=== PATIENT | male | born 1945 | race Caucasian/White ===

== ENCOUNTER 2016-08-19 10:32 | Day surgery (SDC) | payer MEDICARE ==
[~2016-08-19] VITALS: Ht 167.6 cm; Wt 79.3 kg
[~2016-08-19 10:32] MED LIST: ASPI1TAB69 PO; ATOR1TAB18 PO; METO25TA3 PO; OMEP20TA PO; PRAS10TA PO; RANO500 PO
[2016-08-19] MEDS ORDERED: MAGN1TAB14 PO (11:07)
[2016-08-19] MEDS ORDERED: FISHCAP4 PO (11:07)
[2016-08-19 11:09] VITALS: BP 160/82; PULSE 55; RESP 16; TEMP 98.1; O2SAT 96
[2016-08-19 11:14] LABS: AUTOMATED NEUTROPHIL # 5.2 TH/MM3 (1.8-7.7); BASOPHIL % 0.5 % (0.0-2.0); EOSINOPHIL # 0.2 TH/MM3 (0-0.4); EOSINOPHIL % 2.6 % (0.0-4.0); HEMATOCRIT 39.1 % (39.0-51.0); HEMO FLAGS DIFF FINAL; LYMPH % 21.7 % (9.0-44.0); LYMPHOCYTE # 1.7 TH/MM3 (1.0-4.8); MEAN CELL VOLUME 87.5 FL (80.0-100.0); MEAN CORPUSCULAR HEMOGLOBIN 28.6 PG (27.0-34.0); MEAN CORPUSCULAR HGB CONC 32.7 % (32.0-36.0); MONO % 9.5 % (0.0-8.0); NEUT % 65.7 % (16.0-70.0); PLATELET COUNT 173 TH/MM3 (150-450); RED BLOOD COUNT 4.47 MIL/MM3 (4.50-5.90); RED CELL DISTRIBUTION WIDTH 15.5 % (11.6-17.2); WHITE BLOOD COUNT 7.9 TH/MM3 (4.0-11.0)
[2016-08-19 11:22] LABS: APTT (PATIENT) 27.8 SEC (24.3-30.1); PROTHROMBIN TIME - PATIENT 10.6 SEC (9.8-11.6)
[2016-08-19 11:27] LABS: BICARBONATE 28.6 MEQ/L (21.0-32.0)
[2016-08-19] MEDS ORDERED: SODIUM CHLOR 0.9% 1000 ML INJ 1,000 ML IV SCH (12:00)
[2016-08-19] MEDS ORDERED: HEPARIN-NS/PF INJ 500 ML ONE ×2 (13:29→14:16)
[2016-08-19] MEDS ORDERED: IOHEXOL 350 MG/ML 100 ML BTL (for Cath Lab) OTHER ONE (13:29)
[2016-08-19] MEDS ORDERED: MIDAZOLAM HCL 2 MG/2 ML VIAL ONE ×2 (13:29→14:37)
[2016-08-19] MEDS ORDERED: LABETALOL HCL 100 MG/20 ML VIAL ONE (14:37)
[2016-08-19] MEDS ORDERED: SODIUM CHLOR 0.9% 1000 ML INJ 1,000 ML IV ONE (15:08)
[2016-08-19] MEDS ORDERED: ONDANSETRON HCL 4 MG/2 ML VIAL IV PRN (15:15)
[2016-08-19] MEDS ORDERED: SODIUM CHLOR 0.9% 250 ML INJ 250 ML IV PRN (15:15)
[2016-08-19] MEDS ORDERED: ATROPINE SULFATE 1 MG/ML VIAL IVP PRN (15:15)
--- NOTE | 2016-08-19 15:59 | MA ---
cc: CECIL WOOD M.D. DATE: 08/19/2016 PROCEDURE Left heart catheterization, selective coronary and graft angiography, left ventriculography, intravascular ultrasound imaging of the vein graft to the right coronary artery. PROCEDURE NOTE The patient was brought to the cardiac catheterization laboratory in a fasting state after having signed informed consent. The right groin was prepped and draped as per policy and anesthetized with 1% lidocaine. Arterial access was obtained via the right femoral artery. However, we are unable to advance a guidewire through the iliac system. Arterial access was obtained via the left femoral artery and a 6-Nepali sheath placed. Coronary arteriography was performed using 6-Nepali Jeanette left 3.5 and right progressive catheters. The vein graft to the right coronary was engaged with a multipurpose catheter. All of the other grafts were engaged with the progressive right catheter. Left ventriculography was done using a standard 6-Nepali pigtail. Intravascular ultrasound imaging was done as described below. There were no apparent immediate complications. We attempted to close his left femoral arteriotomy site with Vascade without success. Manual pressure was held to achieve good hemostasis. HEMODYNAMIC DATA Left ventricle 158 with an end-diastolic pressure of 16. Aorta 133/43 with a mean of 81. There was no definite significant transvalvular aortic gradient on pullback of the pigtail catheter. CORONARY ARTERIOGRAPHY The left main appears to be totally occluded at its origin. Several flush shots were taken demonstrating no flow through the left main. The right coronary artery is totally occluded near its origin. GRAFT ANGIOGRAPHY The Y-graft to the left circumflex and LAD appears to be widely patent. The wainwright mid to distal LAD has minimal luminal irregularities. The wainwright mid to distal left circumflex has mild diffuse disease. The ostial to proximal left circumflex has diffuse probably up to 80% disease. The proximal LAD appears to be totally occluded. The vein graft to the right coronary artery is widely patent. There is a stent evident at the ostium and the stent appears to be widely patent. There is a globular density seen just distal to the stent. LEFT VENTRICULOGRAPHY In order to reduce dye load contrast injection of the left ventricle was done using a hand injection. The left ventriculogram is somewhat suboptimal. There is suggestion of global hypokinesis with ejection fraction very roughly estimated at 40%. INTRAVASCULAR ULTRASOUND IMAGING DESCRIPTION Heparin, 70 units per kilogram, was administered intravenously. Because of the globular lesion seen distal to the stent in the vein graft to the right coronary artery it was decided to perform intravascular ultrasound imaging. A multipurpose guiding catheter was used to re-engage this graft. Using a 0.014 Prowater guidewire the region of interest was crossed without difficulty and the tip of the wire positioned distally. Intravascular ultrasound imaging demonstrates slight asymmetry of the ostial stent, but it is otherwise widely patent. The region of interest appears to be due to eccentric mild calcification. No thrombus or significant obstructive disease is seen. CONCLUSIONS 1. 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 2. Widely patent Y-graft to the LAD and left circumflex, widely patent vein graft to the right coronary artery with a patent stent at its ostium. 3. Suboptimal left ventriculogram; there is suggestion of diffuse hypokinesis with ejection fraction very roughly estimated at 40%. 4. Status post intravascular ultrasound imaging of the vein graft to the right coronary artery. MD AL Hein/KENNA /3:06 PM /3:32 PM DAVID
--- NOTE | 2016-08-19 19:16 | EKG ---
Date Performed: 08/19/2016 Time Performed: 11:27:02 PTAGE: 71 years EKG: Sinus rhythm with frequent PVCs. Extensive ST-T changes are nonspecific Abnormal ECG PREVIOUS TRACING : 05/11/1994 10.06 Compared to the previous tracing PVCs and ST-T changes pres ent DOCTOR: Khoa Davison Interpretating Date/Time 08/19/2016 19:15:18
--- NOTE | 2016-08-20 15:34 | CATHPROC ---
[employer] HIS Report Study Information Study Number Admission Scheduled Start Study Start [id number] 08/19/2016 08/19/2016 Aug 19 2016 1:19PM Study Type [place] Service Left Heart Cath Cardiac Catheterization Referring Institution Admit Source Facility Department 1 Other [facility] - [facility] Physician and Clinical Staff Initial Abram Chua Curtain Cleaner Kathy Burnett,MICHELLE Other Per Javier,RT(R) Recorder Bobo Reyez,RT(R) TECH2 Scrub Vera Howard,RT(R) Procedures Performed Procedure Location (Site) Vessel Name Coronary Angiograms LCA Left Coronary Coronary Angiograms RCA Right Coronary Coronary Angiograms SVG-OM CIRC Coronary Angiograms SVG-RCA Right Coronary Coronary Angiograms JANETT Dist JANETT IVUS SVG-RCA Right Coronary L Heart Cath LV Gram-hand inj. LV LV Ventricle Wire insertion Fem Art (left) Femoral Art Wire insertion Fem Art (right) Femoral Art Equipment Time Master Control Supervisor Description Size Mfg Part Number Used/Scraped [id number] 14:44 [employer] WIRE, ASABazinga PROWATER 180CM 180CM Used *[id number] TRANSDUCER, TRUWAVE 13:32 [employer] * [id number] Used W/STOCKCOCK [id number] 14:55 CARDIVA MEDICAL VASCADE, FR6 CLOSURE SYSTEM FR 6\7 Used *[id number] *[id number] [id number] *[id number] 534-618T *[id number] 534-620T *[id number] 534-617T *[id number] *[id number] 534-642T *[id number] 534-650S *[id number] WIRE, HYDROSTEER 150CM [id number] 14:10 DAIG/ST. ASIF MEDICAL 150CM Used ANGLED GLIDE *[id number] 13:32 [employer] PACK, CCL CUSTOM * Used *[id number] 13:32 MEDLINE PACER PEN, SKIN DUAL W/ RULER * [id number] Used [id number] 13:32 [employer]ob[employer] MEDICAL SHEATH, FR6.5 PRELUDE 11CM FR 6.5 038ACT Used *[id number] 13:32 [employer] MEDICAL WIRE, 3MMJ .035 180CM 180CM Used *[id number] 13:32 NAMIC MANIFOLD, 4 PORT * Used *[id number] 13:32 NYCOMED OMNIPAQUE, 350 MG, 150ML 150ML [id number] Used DYEVERT, CONTRAST HVOFF-RRS 13:33 [employer] NG Used MODULATION SYSTEM NG *[id number] 13:32 [facility] BLANKET,WARM AIR CCL * Used *[id number] CATHETER, [place] [id number] 14:33 [employer]OL[employer] Used IMAGING *[id number] CATHETER, EW[employer] [place] [id number] 14:45 [employer]OL[employer] Used IMAGING *[id number] Equipment Model, Serial, Lot Number and Expiration Data Description Model Number Serial Number Lot Number Expiration Date CATHETER, [employer] [place] [id number] 05-26-2018 IMAGING CATHETER, [employer] [place] [id number] 05-26-2018 IMAGING DYEVERT, CONTRAST MODULATION [id number] 05-22-2017 SYSTEM NG WIRE, HYDROSTEER 150CM [id number] 05-27-2019 ANGLED GLIDE History: Current Medications Medication Dosage/Unit Route Frequency Last Date/Time Taken ASA Statins (any) EFFIENT Magnesium History: Allergies Allergy Reaction No Known Allergies Oxycontin History: Risk Factors Family History of Hypertension Dyslipidemia Previous [place] Previous Heart Failure Premature CAD Yes Yes No No No Prior Valve Prior PCI Prior PCIDate Prior CABG Prior CABGDate Surgery No Yes 03/29/2016 Yes 07/27/1997 Cerebrovascular Peripheral Artery Chronic Lung On Dialysis Diabetes Disease Disease Disease No No Yes No No History: Symptoms/Diagnosis Selection Items Chest pain SOB History: CV Disease Selection Items Known CAD History: Stress Tests Stress or Imaging Studies Performed No History: Other Disease Selection Items CAD Cancer COPD HTN History: Other Current Smoker Method Quit Packs a Day Years Used Pack Years No Cigarettes 19 Years Ago 1 40 40 Labs Hgb (g/dl) Hct (%) WBC (l/cumm) Platelets (thousands) 12.00-18.00 37.00-55.00 4.80-10.80 140.00-450.00 12.8 39.1 7.9 173 BUN (mg/dl) Creatinine (mg/dl) BUN:Creatinine (1:x) 8.00-20.00 0.10-9.00 10.00-20.00 14 1.5 9.3 Na (meq/l) K (meq/l) 138.00-146.00 3.80-5.10 140 4 INR (PTT:PT) 0.50-2.00 1 CPK-MB (ng/ML) 0.00-7.00 Not Drawn Medication Medication Total Dose (Bolus/Oral) Medication Total Dosage/Unit 1% XYLOCAINE 40 mL HEPARIN 5600 units LABETOLOL 20 mg VERSED 4 mg Medications (Bolus/Oral) Medication Time Given Dosage/Unit Administered By Reason 1% XYLOCAINE 08/19/2016 2:06:15 PM 20 mL Abram Chao 20 mL 1% XYLOCAINE given in lab by Abram Chao in Right Groin via Subcutaneous. Ordered by Richie Chao enn. VERSED 08/19/2016 2:06:32 PM 2 mg Adamy, Kathy 2 mg VERSED given in lab by Kathy Burnett RN via Peripheral IV. Ordered by Abram Chao. 1% XYLOCAINE 08/19/2016 2:13:00 PM 20 mL Abram Chao 20 mL 1% XYLOCAINE given in lab by Abram Chao in Left Groin via Subcutaneous. Ordered by Magdiel Chao. VERSED 08/19/2016 2:39:00 PM 2 mg Adamy, Kathy 2 mg VERSED given in lab by Kathy Burnett RN via Peripheral IV. Ordered by Abram Chao. HEPARIN 08/19/2016 2:40:00 PM 5600 units Adamy, Kathy 5600 units HEPARIN given in lab by Kathy Burnett RN via Peripheral IV. Ordered by Abram Chao. LABETOLOL 08/19/2016 2:43:13 PM 20 mg Adamy, Kathy 20 mg LABETOLOL given in lab by Kathy Burnett, MICHELLE via Peripheral IV. Ordered by Abram Chao. Medication (Drip) Medication Time Given Dosage/Unit Concentration/Unit Diluent (ml) Solution IV Solutions 08/19/2016 1:38:12 PM 0 mL (IV) 500 NaCl .9 Patient arrived on IV Solutions in Left Forearm via Peripheral IV. Pump/Drip Flow = 20 ml/hr using Na Cl .9. Ordered by Abram Chao. Initial Case Assessment Cardiovascular HR Rhythm NIBP Chest Pain 87 sr 191/102 0 Edema Present Skin color Skin None Normal Warm Dry Circulatory - Right Pulses Dorsalis Pedis Femoral d 2 Scale (0,1,2,3,4,d) Circulatory - Left Pulses Dorsalis Pedis Femoral d 2 Scale (0,1,2,3,4,d) Circulatory - Lower Extremities Color Lower Right Color Lower Left Normal Normal Neurological State Oriented to time-place- Alert Moves all extremities person Respiration - General SpO2 (%) 98 Final Case Assessment Cardiovascular HR Rhythm NIBP Chest Pain 61 sr 133/43 0 Edema Present Skin color Skin None Normal Warm Dry Circulatory - Right Pulses Dorsalis Pedis Femoral d 2 Scale (0,1,2,3,4,d) Circulatory - Left Pulses Dorsalis Pedis Femoral d 2 Scale (0,1,2,3,4,d) Circulatory - Lower Extremities Color Lower Right Color Lower Left Normal Normal Neurological State Oriented to time-place- Alert Moves all extremities person Respiration - General SpO2 (%) 99 Chronological Log Time Study Chronological Log 13:29:29 Patient arrived via Bed. 13:29:36 Patient Name, D.O.B, / Armband Verified By R.N. 13:30:42 Consent signed by the physician and the patient and verified by the [facility] staff. 13:30:43 Pre-op and post- op instructions given; patient acknowledges understanding of instructions. Verbal Stimulation=~VERBAL~ Physical Stimulation=~PHYSICAL~ Airway=~AIRWAY~ Respiration=~RESPIR ATION~ 13:30:44 TOTAL=~TOTAL~. (0=absent, 1=limited, 2=present) Vitals capture started with the following parameters, Patient=Adult, Interval=5 min, Initial Pr qhquyk=998 mmHg, 13:35:39 Deflation Rate=5 mmHg 13:36:58 HR=74 bpm, RFRT=158/102 mmhg, SpO2=98.0 %, Resp=10 B/min, Pain=0, Vincent=10, Haley=2 13:38:02 Patient has been NPO for Less than 6Hrs. 13:38:04 Skin Breakdown- none 13:38:05 Patient Warmer Placed on the Table. 13:38:10 Mariya Prominences Protected 13:38:11 A # 20 IV was noted in the Forearm (left). Grade = 0 Patient arrived on IV Solutions in Left Forearm via Peripheral IV. Pump/Drip Flow = 20 ml/hr us ing NaCl .9. Ordered by 13:38:12 Abram Chao. 13:38:13 History and physical on the chart or being dictated. Assessment: Initial Case, HR=87 BPM, Rhythm=sr, ZUBY=517/102 mmhg, Chest Pain=0, Edema=None, Co gil=Normal, Skin = Warm, Dry Right Pulses: João Ped=d, Femoral=2 Left Pulses: João Ped=d, Femoral=2 13:38:14 Lower Right Extremities: Color=Normal Lower Left Extremities: Color=Normal Neurological: State=Alert, Ox3, CORBETT Respiration: SpO2=98 % 13:38:15 Table restraints applied according to hospital policy 13:38:17 Bilateral groins prepped with 2% chlorhexidine, and with a 3 min. waiting time. 13:42:09 HR=81 bpm, RYPH=901/93 mmhg, SpO2=97.0 %, Resp=17 B/min, Pain=0, Vincent=10, Ahley=2 13:46:23 HR=70 bpm, BZAI=755/121 mmhg, SpO2=98.0 %, Resp=22 B/min 13:49:25 Reference ECG taken 13:51:22 HR=66 bpm, KLKT=819/106 mmhg, SpO2=97.0 %, Resp=15 B/min 13:54:22 Pressure channel 1 zeroed. 13:56:23 HR=84 bpm, HTHR=178/114 mmhg, SpO2=95.0 %, Resp=18 B/min, Pain=0, Vincent=10, Haley=2 13:58:22 divert used on this patient 14:01:26 HR=83 bpm, ETVD=384/114 mmhg, SpO2=96.0 %, Resp=19 B/min, Pain=0, Vincent=10, Haley=2 Time Out. Correct patient, correct procedure,correct physician, ,power injector loaded or not l oaded with contrast with 14:05:31 surgical team present. Time Out Concurred by MD, individual staff and SIZE PAINTER in procedure 14:06:12 Case Start 14:06:15 20 mL 1% XYLOCAINE given in lab by Abram Chao in Right Groin via Subcutaneous. Ordered by Abram Chao. 14:06:27 HR=89 bpm, QCWZ=317/114 mmhg, SpO2=95.0 %, Resp=22 B/min, Pain=0, Vincent=10, Haley=2 14:06:32 2 mg VERSED given in lab by Kathy Burnett RN via Peripheral IV. Ordered by Abram Chao. 14:06:41 Access site was Right Femoral Artery. unable to access rt. femoral artery 14:10:02 A WIRE, HYDROSTEER 150CM ANGLED GLIDE 150CM was inserted via Fem Art (right). 14:11:24 HR=88 bpm, XIJD=990/88 mmhg, SpO2=89.0 %, Resp=27 B/min, Pain=0, Vincent=10, Haley=2 14:11:59 Wire removed 14:13:00 20 mL 1% XYLOCAINE given in lab by Abram Chao in Left Groin via Subcutaneous. Ordered by Abram Chao. 14:14:38 A SHEATH, FR6.5 PRELUDE 11CM FR 6.5 was advanced into the Fem Art (left) using the Modified Seldinger technique. A JL 4.0 INFINITI CATHETER FR 6 was advanced over a wire. OMNIPAQUE, 350 MG, 150ML 150ML was us ed for 14:15:29 injections. 14:16:25 HR=83 bpm, UJSN=490/107 mmhg, SpO2=98.0 %, Resp=41 B/min, Pain=0, Vincent=10, Haley=2 Recorded Pressure: Ao, HR=87, Condition=Condition 1 14:16:42 (Aorta) Ao 237/86/155 After removing the current catheter a JL 4.5 INFINITI CATHETER FR 6 was advanced over a WIRE, 3 MMJ .035 180CM 14:17:51 180CM. 14:18:09 The LCA was injected and visualized at various angles. OMNIPAQUE, 350 MG, 150ML 150ML used . Recorded Pressure: Ao, HR=80, Condition=Condition 1 14:19:33 (Aorta) Ao 228/85/143 After removing the current catheter a 3DRC INFINITI CATHETER FR 6 was advanced over a WIRE, 3MM J .035 180CM 14:21:07 180CM. 14:21:15 The RCA was injected and visualized at various angles. OMNIPAQUE, 350 MG, 150ML 150ML used . 14:21:26 HR=85 bpm, MAUE=014/105 mmhg, SpO2=98.0 %, Resp=23 B/min, Pain=0, Vincent=10, Haley=2 14:22:33 The SVG-OM was injected and visualized at various angles. OMNIPAQUE, 350 MG, 150ML 150ML us ed. 14:26:25 HR=94 bpm, RFGA=216/114 mmhg, SpO2=99.0 %, Resp=23 B/min, Pain=0, Vincent=10, Haley=2 14:26:56 The JANETT Dist was injected and visualized at various angles. OMNIPAQUE, 350 MG, 150ML 150ML used. not attached After removing the current catheter a MPA-2 INFINITI CATHETER FR 6 was advanced over a WIRE, 3M MJ .035 180CM 14:28:32 180CM. 14:29:10 The SVG-RCA was injected and visualized at various angles. OMNIPAQUE, 350 MG, 150ML 150ML u sed. 14:31:28 Catheter was removed 14:31:29 HR=90 bpm, FOKY=195/111 mmhg, SpO2=99.0 %, Resp=19 B/min, Pain=0, Vincent=10, Haley=2 A JL 3.5 INFINITI CATHETER FR 6 was advanced over a wire. OMNIPAQUE, 350 MG, 150ML 150ML was us ed for 14:32:15 injections. 14:36:26 HR=86 bpm, NQPE=307/107 mmhg, SpO2=99.0 %, Resp=13 B/min, Pain=0, Vincent=10, Haley=2 After removing the current catheter a AL 1 INFINITI CATHETER FR 6 was advanced over a WIRE, 3MM J .035 180CM 14:37:29 180CM. 14:37:56 The LCA was injected and visualized at various angles. OMNIPAQUE, 350 MG, 150ML 150ML used . 14:39:00 2 mg VERSED given in lab by Kathy Brunett, MICHELLE via Peripheral IV. Ordered by Abram Chao. 14:40:00 5600 units HEPARIN given in lab by Kathy Burnett, MICHELLE via Peripheral IV. Ordered by Abram Chao. 14:41:29 HR=85 bpm, WUCS=633/96 mmhg, SpO2=97.0 %, Resp=38 B/min, Pain=0, Vincent=10, Haley=2 After removing the current catheter a MPA-1 GUIDE CATHETER FR 6 was advanced over a WIRE, 3MMJ .035 180CM 14:41:39 180CM. 14:43:13 20 mg LABETOLOL given in lab by Kathy Burnett, MICHELLE via Peripheral IV. Ordered by Richie Chao. 14:46:30 HR=59 bpm, NIBP=72/46 mmhg, SpO2=96.0 %, Resp=36 B/min, Pain=0, Vincent=10, Haley=2 14:47:23 A WIRE, ASAHI PROWATER 180CM 180CM was inserted via Fem Art (left). 14:47:59 An CATHETER, Squid [employer] [place] [employer] was advanced through the lesion. Images saved on to IVUS hard drive 14:49:01 IVUS in progress using ivus 14:49:07 IVUS catheter removed After removing the current catheter a PIGTAIL STR INFINITI CATHETER FR 6 was advanced over a WI RE, 3MMJ .035 14:51:10 180CM 180CM. 14:51:53 HR=67 bpm, XYMW=209/56 mmhg, SpO2=95.0 %, Resp=39 B/min, Pain=0, Vincent=10, Haley=2 Recorded Pressure: LV, HR=80, Condition=Condition 1 14:52:34 (Left Ventricle) LV 157/6/10 Recorded Pressure: LV, Ao, HR=60, Condition=Condition 1 14:53:19 (Left Ventricle) LV 152/9/5, (Aorta) Ao 149/41/81 14:53:42 The LV was manually injected with 10 cc's and visualized. OMNIPAQUE, 350 MG, 150ML 150ML us ed. 14:54:01 An injection in the Groin (left) was made through the SHEATH, FR6.5 PRELUDE 11CM FR 6.5. Assessment: Final Case, HR=61 BPM, Rhythm=sr, STKH=589/43 mmhg, Chest Pain=0, Edema=None, Color =Normal, Skin = Warm, Dry Right Pulses: João Ped=d, Femoral=2 Left Pulses: João Ped=d, Femoral=2 14:55:01 Lower Right Extremities: Color=Normal Lower Left Extremities: Color=Normal Neurological: State=Alert, Ox3, CORBETT Respiration: SpO2=99 % 14:55:57 VASCADE, FR6 CLOSURE SYSTEM FR 6\7 placement in the Fem Art (left) 14:56:20 HR=56 bpm, NIBP=90/62 mmhg, SpO2=98.0 %, Resp=21 B/min, Pain=0, Vincent=10, Haley=2 14:56:59 Case End 14:57:00 Sterile dressing applied to site 14:57:01 No case complications noted. 14:57:05 Cine recording checked. 14:57:06 Bedside Report will be given. 14:57:09 Contrast Scanned 14:57:13 A Left Heart Cath was performed. 14:57:19 Clinical correlaton risk stratification. 15:01:15 HR=53 bpm, NIBP=92/68 mmhg, SpO2=98.0 %, Resp=22 B/min, Pain=0, Vincent=10, Haley=2 15:06:16 HR=60 bpm, BWMF=913/70 mmhg, SpO2=98.0 %, Resp=15 B/min 15:07:20 Case complication noted. small hematoma rt. groin 15:11:45 HR=53 bpm, NIBP=97/74 mmhg, SpO2=98.0 %, Resp=23 B/min, Pain=0, Vincent=10, Haley=2 15:16:16 HR=59 bpm, ULSR=641/78 mmhg, SpO2=98.0 %, Resp=42 B/min, Pain=0, Vincent=10, Haley=2 15:21:23 HR=62 bpm, LJXW=225/67 mmhg, SpO2=98.0 %, Resp=16 B/min, Pain=0, Vincent=10, Haley=2 15:26:24 HR=51 bpm, ZWAG=032/62 mmhg, SpO2=99.0 %, Resp=17 B/min, Pain=0, Vincent=10, Haley=2 15:31:19 HR=58 bpm, NIBP=98/67 mmhg, SpO2=99.0 %, Resp=21 B/min, Pain=0, Vincent=10, Haley=2 15:36:22 HR=50 bpm, NIBP=91/58 mmhg, SpO2=99 %, Resp=15 B/min 15:36:31 syvek patch applied to site 15:41:21 HR=54 bpm, NIBP=91/68 mmhg, SqY3=794.0 %, Resp=13 B/min 15:47:26 HR=63 bpm, MXCS=596/84 mmhg, SpO2=99 %, Resp=26 B/min 15:48:45 merit femoral device placed on lt. groin 15:49:23 Vitals capture stopped. 16:00:00 Patient moved to stretcher End Study - Contrast Media Used In Study Contrast Total Opened (mL) Total Used (mL) Total Wasted (mL) Omnipaque 200 100 100 End Study - Maximum Contrast Load Max Contrast Load (mL) 264.4 End Study - Radiation Exposure Fluoro Time (minutes) 14.5 End Study - Sheaths Sheaths Pulled By Sheath Hold Time (min) Abram Chao End Study - Patient Disposition Complications Transferred To Interventional Outcome No [facility] Holding No attempt made
[2016-09-30] MEDS ORDERED: RANO500 PO (15:29)
[2016-09-30] MEDS ORDERED: PRAS10TA PO (15:29)
== END 2016-08-19 20:50 | disposition home or self-care (01) ==
LOC: HDIC 10:32 → HDOC 10:32
PROVIDERS: ATTEND Internal Medicine Cardiovascular Disease
DX: I25.10 Atherosclerotic heart disease of native coronary artery without angina pectoris (principal); I25.82 Chronic total occlusion of coronary artery; I10 Essential (primary) hypertension; E78.5 Hyperlipidemia, unspecified; J44.9 Chronic obstructive pulmonary disease, unspecified; Z88.8 Allergy status to other drugs, medicaments and biological substances; Z95.1 Presence of aortocoronary bypass graft; Z95.820 Peripheral vascular angioplasty status with implants and grafts; Z95.5 Presence of coronary angioplasty implant and graft; Z87.891 Personal history of nicotine dependence; Z79.82 Long term (current) use of aspirin
CPT/HCPCS: 80048; 85025; 85610; 85730; 92978; 93005; 93459; C1753; C1760; C1769; C1887; C1893; G0269; J1644; J2250; Q9967

== ENCOUNTER 2016-09-23 09:19 | Day surgery (SDC) | payer MEDICARE ==
[~2016-09-23 09:19] MED LIST changes: +FISHCAP4 PO; +MAGN1TAB14 PO; -METO25TA3 PO
[2016-09-23 09:50] VITALS: BP 174/97; PULSE 56; RESP 18; TEMP 98.2; O2SAT 96
[2016-09-23] MEDS ORDERED: ASPI81CH CHEW (10:01)
[2016-09-23] MEDS ORDERED: METO25TA3 PO (10:03)
[2016-09-23] MEDS ORDERED: SODIUM CHLOR 0.9% 1000 ML INJ 1,000 ML IV SCH (11:00)
[2016-09-23] MEDS ORDERED: THROMBIN (TOPICAL) 5,000 UNIT VIAL ONE (11:38)
--- NOTE | 2016-09-23 13:13 | RADRPT ---
EXAM DATE/TIME: 09/23/2016 12:08 [facility] COMPARISON: No previous studies available for comparison. INDICATIONS : Bilateral groin pain. MEDICAL HISTORY : Hypertension. Hiatal hernia. SURGICAL HISTORY : Hernia repair. Cardiac cath. ENCOUNTER: Initial ACUITY: 1 week PAIN SCORE: 4/10 LOCATION: Bilateral groin. AREA EVALUATED: Bilateral groin. FINDINGS: Ultrasound examination confirms findings of a thrombosed right common femoral artery pseudoaneurysm m easuring approximately 1.5 x 1.0 x 1.5 cm. The right common femoral artery appears patent. The there is no evidence for a pseudoaneurysm on the left with patent left common femoral artery. CONCLUSION: 1. Thrombosed 1.5 cm right common femoral artery pseudoaneurysm. 2. No evidence for left-sided Psudoaneurysm. Danial Ratliff MD on September 23, 2016 at 13:04 Board Certified Radiologist. This report was verified electronically.
--- NOTE | 2016-09-23 14:11 | RADRPT ---
EXAM DATE/TIME: 09/23/2016 12:24 [facility] COMPARISON: No previous studies available for comparison. INDICATIONS : Patient with pseudoaneurysm.Post heart cath. MEDICAL HISTORY : 1.Carotid artery disease 2. HTN 3. DM 4. COPD 5. CAD 6. CVA 7. GERD 8. PVD 9. Subclavian artery stenosis SURGICAL HISTORY : 1. Heart cath 2. CABG 3. Coronary stent 4. Rt CEH ENCOUNTER: Initial ACUITY: 4-6 days PAIN SCORE: 0/10 IMAGE SERIES: 0 PROCEDURE : 1. Ultrasound guided evaluation of the right groin The risks, benefits and alternatives to the procedure were explained and verbal and written consent w as obtained. The site was prepped in sterile fashion. Full sterile technique was used, including ca p, mask, sterile gloves and gown and a large sterile sheet. Hand hygiene and 2% chlorhexidine and/or betadine/alcohol prep was utilized per protocol for cutaneous antisepsis. The skin and subcutaneous tissues were infiltrated with local anesthetic solution. Ultrasound examination of the right groin demonstrates an apparent subcutaneous centimeter thrombosed pseudoaneurysm arising from the right common femoral artery. Flow is demonstrated in the right commo n femoral artery. Therefore, injection was deferred. Will obtain formal ultrasound examination. CONCLUSION: 1. Apparent interval thrombosis of right common femoral artery pseudoaneurysm Therefore, thrombin inj ection was deferred. Danial Ratliff MD on September 23, 2016 at 14:07 Board Certified Radiologist. This report was verified electronically.
[2016-09-30] MEDS ORDERED: PRAS10TA PO (15:29)
[2016-09-30] MEDS ORDERED: RANO500 PO (15:29)
== END 2016-09-23 13:50 | disposition home or self-care (01) ==
LOC: HROP 09:19 → HRIP 09:20 → HROP 13:50
PROVIDERS: ATTEND Internal Medicine Cardiovascular Disease
DX: I72.4 Aneurysm of artery of lower extremity (principal); I73.9 Peripheral vascular disease, unspecified; I10 Essential (primary) hypertension; E11.9 Type 2 diabetes mellitus without complications; J44.9 Chronic obstructive pulmonary disease, unspecified; Z86.73 Personal history of transient ischemic attack (TIA), and cerebral infarction without residual deficits; K21.9 Gastro-esophageal reflux disease without esophagitis; Z95.1 Presence of aortocoronary bypass graft
CPT/HCPCS: 93925

== ENCOUNTER 2016-10-21 08:33 | Day surgery (SDC) | payer MEDICARE ==
[~2016-10-21] VITALS: Ht 165.1 cm; Wt 80.5 kg
[~2016-10-21 08:33] MED LIST changes: -ASPI1TAB69 PO; +ASPI81CH CHEW; +METO25TA3 PO
[2016-10-21] MEDS ORDERED: FERR325C PO (09:21)
[2016-10-21 09:23] VITALS: BP 169/83; PULSE 60; RESP 18; TEMP 98.1; O2SAT 97
[2016-10-21] MEDS ORDERED: SODIUM CHLORIDE 0.9% FLUSH 10 ML FLUSH IV FLUSH PRN ×2 (09:30)
[2016-10-21 09:32] LABS: AUTOMATED NEUTROPHIL # 4.7 TH/MM3 (1.8-7.7); BASOPHIL # 0.1 TH/MM3 (0-0.2); BASOPHIL % 0.9 % (0.0-2.0); EOSINOPHIL # 0.3 TH/MM3 (0-0.4); EOSINOPHIL % 3.8 % (0.0-4.0); HEMATOCRIT 36.4 % (39.0-51.0); HEMO FLAGS DIFF FINAL; LYMPH % 21.3 % (9.0-44.0); LYMPHOCYTE # 1.5 TH/MM3 (1.0-4.8); MEAN CELL VOLUME 86.4 FL (80.0-100.0); MEAN CORPUSCULAR HEMOGLOBIN 29.4 PG (27.0-34.0); PLATELET COUNT 217 TH/MM3 (150-450); RED BLOOD COUNT 4.22 MIL/MM3 (4.50-5.90); RED CELL DISTRIBUTION WIDTH 15.4 % (11.6-17.2); WHITE BLOOD COUNT 7.3 TH/MM3 (4.0-11.0)
[2016-10-21 09:37] LABS: APTT (PATIENT) 27.9 SEC (24.3-30.1); PROTHROMBIN TIME - PATIENT 10.5 SEC (9.8-11.6)
[2016-10-21 09:42] LABS: BICARBONATE 32.1 MEQ/L (21.0-32.0); POTASSIUM 3.4 MEQ/L (3.5-5.1)
[2016-10-21] MEDS ORDERED: HEPARIN SODIUM - IV 10,000 UNITS/10 ML VIAL ONE (11:26)
[2016-10-21] MEDS ORDERED: MIDAZOLAM HCL 5 MG/ML VIAL (1 ML) ONE ×2 (11:27→12:27)
[2016-10-21] MEDS ORDERED: LIDOCAINE HCL 1% 20 ML VIAL INFIL ONE (11:51)
[2016-10-21] MEDS ORDERED: IOHEXOL 300 MG/ML 100 ML BTL (for Rad CT) OTHER ONE (11:52)
[2016-10-21] MEDS ORDERED: NITROGLYCERIN INJ 5 ML ONE (11:52)
[2016-10-21] MEDS ORDERED: IOHEXOL 300 MG/ML 50 ML BTL (for RAD DIAG) OTHER ONE (11:52)
[2016-10-21] MEDS ORDERED: PROTAMINE SULFATE 50 MG/5 ML VIAL ONE (14:03)
[2016-10-21] MEDS ORDERED: PRASUGREL 10 MG TAB ONE (14:45)
[2016-10-21 19:00] VITALS: PULSE 58
[2016-10-21 20:00] VITALS: BP 153/86; PULSE 62; PULSE 64; RESP 18; TEMP 98.5; O2SAT 96
[2016-10-21 21:00] VITALS: PULSE 66
[2016-10-21] MEDS: METOPROLOL TARTRATE 25 MG TAB PO SCH (21:15)
[2016-10-21] MEDS: PANTOPRAZOLE SOD 20 MG DELAYED RELEASE TAB PO SCH (21:15)
[2016-10-21] MEDS: RANOLAZINE 500 MG EXTENDED RELEASE TAB PO SCH (21:15)
[2016-10-21] MEDS ORDERED: ATORVASTATIN 80 MG TAB PO SCH (21:15)
[2016-10-21] MEDS ORDERED: PILL SPLITTER OTHER PRN (21:15)
--- NOTE | 2016-10-21 21:41 | MA ---
cc: EDE RAYGOZA DATE OF PROCEDURE October 21, 2016 DATE OF 1945 PROCEDURE PERFORMED 1. Bilateral lower extremity angiography. 2. Selective left superior femoral artery angiography. 3. Successful atherectomy with a CSI device to the left popliteal artery. 4. Successful STUDENT with drug-eluting balloon to the left popliteal artery. INDICATION Intermittent claudication in the left leg with complete occlusion of the left popliteal artery. DESCRIPTION OF PROCEDURE Consent signed. The patient was prepped and draped in sterile fashion. Using 1 % lidocaine for local anesthesia and a micropuncture kit a 5-Niuean sheath was inserted into the right common femoral artery. The right common femoral artery angiography was performed to confirm position of the sheath. Then an Omni flush catheter over a stiff angled glide wire was positioned in the abdominal aorta. This was followed by simultaneous bilateral angiography using step-ups. We identified a complete occlusion of the popliteal artery on the left leg, that explained the patient's symptoms. Thus, we proceeded to fix. Given that the patient has a bilateral common iliacs stents the approach was changed from the right site to the left anterograde fashion. For this lidocaine was used for local anesthesia and a micropuncture kit was used to access into the left superior femoral artery and then insertion of a 6-Niuean sheath. Then, CORN LAB TECHNICIAN 25 wire over a fine cross was used to cross the CORN LAB TECHNICIAN intraluminal position was confirmed via angiography injection through the micro catheter. Then we exchanged the wire for a CSI wire which was positioned distally in the peroneal arteries, this was followed by several passes with a 2-0 bur of the CSI several times in the popliteal artery. Then we used a drug-eluting balloon 4 x 15 to __ _ atmospheres. Final angiographic views revealed good ____ expansion with no residual dissection and MOY III flow and patent anterior peroneal trunk. The patient tolerated the procedure well without complications. Estimated blood loss less than 60 cc. Total contrast used 100 cc. The left and right groin sites were closed with a Vascade closure device. RESULTS Will start with the right side. The right common iliac artery is patent. It has a stent in its proximal portion. 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 Internal iliac is small and patent. Common femoral artery is patent. Profunda femoral artery is patent. The superficial femoral artery has 10 % lesion in its ostial segment. The SFA is patent with some minimal calcifications. There is a 40% lesion in the distal SFA right before the Ernesto 's canal. The popliteal artery on the right also has some calcifications, however, MOY III flow. The tibial peroneal trunk d transfuse patent. The posterior tibia is patent. The peroneal is patent and the posterior tibia is also patent. Then to the left side. The left side, the left common iliac is patent. It has a stent in its proximal segment which is patent. 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 External iliac is patent. Internal iliac is diffusely diseased. The common femoral artery has some calcifications, however patent. The left profunda artery is patent. The left SFA has minimal luminal irregularities, however patent. The left popliteal has a 100% occlusion in its distal segment. This segment is calcified, giving collaterals to the anterior peroneal trunk with MOY-III flow below the occlusion. The posterior tibia is patent. Peroneal is patent and the anterior tibialis is also patent. CONCLUSION Successful atherectomy and STUDENT to left popliteal artery in the setting of intermittent claudication on the left leg. RECOMMENDATIONS The patient will be admitted to the [facility] for post cath care. He will continue his home medications. Will observe him overnight for any complications. The patient is stable. He will be able to be discharged home tomorrow morning. MD VERONICA Kimble/EO /6:00 PM /9:06 PM DAVID
[2016-10-21 22:00] VITALS: PULSE 62
[2016-10-21 23:00] VITALS: PULSE 58
[2016-10-22] VITALS (14 sets, daily range): BP systolic 142–158; BP diastolic 84–90; PULSE 52–78; RESP 18; TEMP 98.4–98.7; O2SAT 96–97
[2016-10-22] MEDS: RANOLAZINE 500 MG EXTENDED RELEASE TAB PO SCH (08:54)
[2016-10-22] MEDS: PANTOPRAZOLE SOD 20 MG DELAYED RELEASE TAB PO SCH (08:54)
[2016-10-22] MEDS: METOPROLOL TARTRATE 25 MG TAB PO SCH (08:54)
[2016-10-22] MEDS ORDERED: PRASUGREL 10 MG TAB PO SCH (11:00)
[2016-10-22] MEDS ORDERED: MAGNESIUM OXIDE 400 MG TAB PO SCH (11:00)
[2016-10-22] MEDS ORDERED: FERROUS SULFATE 325 MG (65 MG ELEMENTAL IRON) TAB PO SCH (11:00)
[2016-10-22] MEDS ORDERED: ASPIRIN 81 MG CHEW TAB PO SCH (11:00)
--- NOTE | 2016-10-22 12:09 | PD.CARD.PN ---
Subjective Subjective Remarks no cv complaints no overnight events Objective Vital Signs / I&O Vital Signs Date Time Temp Pulse Resp B/P Pulse Ox O2 Delivery O2 Flow Rate FiO2 10/22/16 08:10 98.7 58 18 142/90 97 10/22/16 08:10 58 10/22/16 06:00 62 10/22/16 05:00 53 10/22/16 04:00 98.7 59 18 146/84 96 10/22/16 04:00 59 10/22/16 03:00 53 10/22/16 02:00 53 10/22/16 01:00 53 10/22/16 00:00 52 10/22/16 00:00 98.4 57 18 158/86 96 10/21/16 23:00 58 10/21/16 22:00 62 10/21/16 21:00 66 10/21/16 20:00 62 10/21/16 20:00 98.5 64 18 153/86 96 10/21/16 19:00 58 I/O 10/21/16 10/21/16 10/21/16 10/22/16 10/22/16 10/22/16 06:59 14:59 22:59 06:59 14:59 22:59 Intake Total 240 ml Output Total 935 ml Balance -695 ml Intake Oral 240 ml Output Urine Total 935 ml Physical Exam GENERAL: Well-nourished, well-developed patient. SKIN: Warm and dry. HEAD: Normocephalic. EYES: No scleral icterus. No injection or drainage. NECK: Supple, trachea midline. No JVD or lymphadenopathy. CARDIOVASCULAR: Regular rate and rhythm without murmurs, gallops, or rubs. RESPIRATORY: Breath sounds equal bilaterally. No accessory muscle use. GASTROINTESTINAL: Abdomen soft, non-tender, nondistended. EXTREMITIES: No cyanosis, or edema. NEUROLOGICAL: Awake, alert, and oriented x 3. Non-focal. Assessment and Plan Problem List: (1) PAD (peripheral artery disease) Assessment and Plan: s/p atherectomy and MATHEMATICIAN RESEARCH to left Popliteal doing well ambulating without difficult Cont DAPT ASA and Effient Carotid US Stable to be d/c home today Tray Bishop MD Oct 22, 2016 12:09
--- NOTE | 2016-10-22 12:12 | HHI.DS ---
Discharge Summary Admission Date 10/21/2016 Discharge Date: Oct 22, 2016 Admitting Diagnosis PAD (1) PAD (peripheral artery disease) Diagnosis: Principal Procedures INJECTION WAX MOLDER to left Popliteal Brief History Intermittent CLaudication with known PAD Albaro IIb Left Leg CBC/BMP: 10/21/16 0915 10/21/16 0915 Significant Findings Laboratory Tests Test 10/21/16 09:15 Red Blood Count 4.22 MIL/MM3 (4.50-5.90) Hemoglobin 12.4 GM/DL (13.0-17.0) Hematocrit 36.4 % (39.0-51.0) Monocytes (%) (Auto) 9.0 % (0.0-8.0) Potassium Level 3.4 MEQ/L (3.5-5.1) Carbon Dioxide Level 32.1 MEQ/L (21.0-32.0) Creatinine 1.37 MG/DL (0.60-1.30) Estimat Glomerular Filtration 51 ML/MIN (>89) Rate PE at Discharge GENERAL: Well-nourished, well-developed patient. SKIN: Warm and dry. HEAD: Normocephalic. EYES: No scleral icterus. No injection or drainage. NECK: Supple, trachea midline. No JVD or lymphadenopathy. CARDIOVASCULAR: Regular rate and rhythm without murmurs, gallops, or rubs. RESPIRATORY: Breath sounds equal bilaterally. No accessory muscle use. GASTROINTESTINAL: Abdomen soft, non-tender, nondistended. EXTREMITIES: No cyanosis, or edema. NEUROLOGICAL: Awake, alert, and oriented x 3. Non-focal. Hospital Course Successful INJECTION WAX MOLDER and Atherectomy to left popliteal Pt Condition on Discharge: Good Discharge Disposition: Discharge Home Discharge Instructions DIET: Follow Instructions for: Heart Healthy Diet Activities you can perform: Regular-No Restrictions Tray Bishop MD Oct 22, 2016 12:12
--- NOTE | 2016-10-22 12:47 | EKG ---
Date Performed: 10/21/2016 Time Performed: 23:14:46 PTAGE: 71 years EKG: Sinus bradycardia Possible left ventricular hypertrophy Extensive ST-T changes may be due t o hypertrophy Abnormal ECG PREVIOUS TRACING : 08/19/2016 11.27 DOCTOR: Tray Bishop Interpretating Date/Time 10/22/2016 12:44:45
--- NOTE | 2016-10-22 15:34 | RADRPT ---
EXAM DATE/TIME: 10/22/2016 11:27 [facility] COMPARISON: No previous studies available for comparison. INDICATIONS : Stenosis. MEDICAL HISTORY : Gastroesophageal reflux disease. Cardiac disorders. Circulatory problems. Chest pain. Hiatal rolan ia. SURGICAL HISTORY : None. ENCOUNTER: Initial ACUITY: 1 month PAIN SCORE: 1/10 LOCATION: Bilateral neck PEAK SYSTOLIC VELOCITIES (cm/sec): ICA/CCA RATIO: Right: Unable to obtain. Left: Unable to obtain. ICA: Right: Unable to obtain. Left: Unable to obtain. CCA: Right: 78.6 Left: 55.5 ECA: Right: 213.6 Left: 158.3 VERTEBRAL: Right: 50.4 antegrade Left: 70.4 retrograde Elevated flow velocities and ICA/CCA ratios have been found to correlate with increased degrees of vessel stenosis, calculated as percentage of diameter relative to a normal segment of distal ICA/CCA FINDINGS: RIGHT CAROTID: Calcified plaquing throughout the common carotid, most severe in the bulb. Internal carotid appears o ccluded. The waveforms are within normal limits. LEFT CAROTID: Calcified plaquing throughout the common carotid, most severe in the bulb. Internal carotid appears o ccluded. The waveforms are within normal limits. VERTEBRAL ARTERIES: Antegrade flow is seen in the right vertebral. The waveform in the left vertebral is both above and b elow the baseline suggesting to and fro flow. MISCELLANEOUS: None. CONCLUSION: 1. 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 Patient does report a history of the same. I do not have any prior imaging at this institution, however. 2. In addition, complex low above and below the baseline in the left vertebral could suggest some deg ree of proximal stenosis in the left subclavian. 3. Antegrade flow in the right vertebral. Kirk Pena MD on October 22, 2016 at 15:27 Board Certified Radiologist. This report was verified electronically.
== END 2016-10-22 14:04 | disposition home or self-care (01) ==
LOC: HDIC 08:33 → HCVO 08:33 → HCIS 18:45 → HCVO 10-22 14:04
PROVIDERS: ATTEND Radiology Vascular & Interventional Radiology
DX: I73.9 Peripheral vascular disease, unspecified (principal); I70.92 Chronic total occlusion of artery of the extremities; I65.23 Occlusion and stenosis of bilateral carotid arteries; R00.1 Bradycardia, unspecified; R94.31 Abnormal electrocardiogram [ECG] [EKG]; I25.10 Atherosclerotic heart disease of native coronary artery without angina pectoris; I10 Essential (primary) hypertension; E78.5 Hyperlipidemia, unspecified; K21.9 Gastro-esophageal reflux disease without esophagitis; Z87.891 Personal history of nicotine dependence; Z95.1 Presence of aortocoronary bypass graft; Z79.899 Other long term (current) drug therapy; Z79.82 Long term (current) use of aspirin
CPT/HCPCS: 37225; 75716; 80048; 85002; 85025; 85610; 85730; 93005; 93880; C1760; C1769; G0269; J1644; J2250; J2720; J3010; Q9967; C1725; C1887; C1893

== ENCOUNTER → 2016-12-17 | Outpatient (CLI) | payer MEDICARE ==
[~2016-12-17] MED LIST changes: +FERR325C PO; +FLUT1SPR5 EACH NARE; +IODIXANOL 320 MG/ML 10 ML VIAL (for Rad CT) IV ONE; +NITR1SUB3 SL; +ZITHTAB PO
--- NOTE | 2016-12-17 14:48 | RADRPT ---
EXAM DATE/TIME: 12/17/2016 13:32 [facility] COMPARISON: No previous studies available for comparison. INDICATIONS : Atherosclerotic heart disease. IV CONTRAST: 65 cc Visipaque (iodixanol) IV ; Cumulative dose for multiple exams. RADIATION DOSE: 26.51 CTDIvol (mGy) ; Combined studies MEDICAL HISTORY : Hypertension. SURGICAL HISTORY : None. ENCOUNTER: Initial ACUITY: 1 day PAIN SCALE: 0/10 LOCATION: neck TECHNIQUE: Volumetric scanning was performed using a multi-row detector CT scanner. The data was post processed with a variety of visualization algorithms including full volume maximum intensity projection, multi -planar sliding thin slab reformation, curved planar reformation, and surface rendering techniques. Using automated exposure control and adjustment of the mA and/or kV according to patient size, radiat ion dose was kept as low as reasonably achievable to obtain optimal diagnostic quality images. DICO M format image data is available electronically for review and comparison. FINDINGS: The right internal carotid is occluded at its origin. It is quite diminutive in size in its distal se gment and reconstitutes at the skull base. The left internal carotid is occluded at its origin as wel l. The left reconstitutes at the level of the carotid T. Both vertebral arteries are patent. The left vertebral is diminutive in size. It should be noted, the left subclavian is occluded at its origin as well. The anterior and middle cerebral circulation is widely patent bilaterally. Note is made of a hypoplas tic A1 segment on the left. Both posterior communicating arteries are patent. The posterior cerebrals are widely patent bilaterally. CONCLUSION: 1. Occlusion of the right internal carotid at its origin with reconstitution at the level the skull b ase. 2. Occlusion of the left internal carotid. The intracranial circulation on the left reconstitutes at the level of the carotid T. 3. 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 4. The entire intracranial circulation essentially feeds from the right vertebral. Kg Rudolph MD on December 17, 2016 at 14:40 Board Certified Radiologist. This report was verified electronically.
--- NOTE | 2016-12-17 15:20 | RADRPT ---
EXAM DATE/TIME: 12/17/2016 13:32 [facility] COMPARISON: No previous studies available for comparison. INDICATIONS : Atherosclerotic heart disease. IV CONTRAST: 65 cc Visipaque (iodixanol) IV ; Cumulative dose for multiple exams. RADIATION DOSE: 26.51 CTDIvol (mGy) ; Combined studies MEDICAL HISTORY : Hypertension. SURGICAL HISTORY : None. ENCOUNTER: Initial ACUITY: 1 day PAIN SCALE: 0/10 LOCATION: neck Elevated flow velocities and ICA/CCA ratios have been found to correlate with increased degrees of vessel stenosis, calculated as percentage of diameter relative to a normal segment of distal ICA/CCA. TECHNIQUE: Volumetric scanning was performed using a multirow detector CT scanner. The data was post processed with a variety of visualization algorithms including full-volume maximum intensity projection, multip lanar sliding thin-slab reformation, curved-planar reformation, and surface-rendering techniques. Us ing automated exposure control and adjustment of the mA and/or kV according to patient size, radiatio n dose was kept as low as reasonably achievable to obtain optimal diagnostic quality images. DICOM f ormat image data is available electronically for review and comparison. FINDINGS: AORTIC ARCH: There is a three-vessel origin of the great vessels from the aorta. Non-ostial occlusion of the left subclavian with probable subclavian steal. High-grade ostial stenosis of the left common carotid cate ry. Brachiocephalic artery shows calcification but is patent RIGHT CAROTID: The common carotid artery is intact. The carotid bulb has a normal configuration without ulceration o r narrowing. Internal carotid artery occludes at the origin with a string sign of the distal internal carotid, likely retrograde filling. The external carotid artery is intact. LEFT CAROTID: High-grade ostial stenosis of the common carotid. The carotid bulb has a normal configuration withou t ulceration or narrowing. Internal occludes near the origin. The external carotid artery is intact. VERTEBRALS: Probable retrograde filling of the left vertebral in a subclavian steal. The entire brain in the left upper trauma he appear to be supplied I. the patent right vertebral artery. The distal right vertebr al artery is ectatic and remains patent to the basilar. CONCLUSION: 1. 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 The distal right vertebral is ectatic. 2. Ostial high-grade stenosis of the left common carotid artery with a nonostial occlusion of the pro ximal left subclavian. Distal left subclavian appears to be fed through retrograde filling of the ips ilateral vertebral. 3. Occlusion of the internal carotid arteries near their origins bilaterally. Kirk Pena MD on December 17, 2016 at 15:11 Board Certified Radiologist. This report was verified electronically.
== END ==
LOC: HRAD 12:18
PROVIDERS: ATTEND Radiology Vascular & Interventional Radiology
DX: I25.10 Atherosclerotic heart disease of native coronary artery without angina pectoris (principal); I77.9 Disorder of arteries and arterioles, unspecified
CPT/HCPCS: 70496; 70498; Q9967

== ENCOUNTER 2017-04-02 10:20 | Inpatient (IN) | payer MEDICARE ==
[~2017-04-02] VITALS: Ht 167.6 cm; Wt 82.0 kg
[2017-04-02] VITALS (17 sets, daily range): BP systolic 140–190; BP diastolic 82–109; PULSE 64–98; RESP 12–25; TEMP 97.9–98.3; O2SAT 97–99
[~2017-04-02 10:20] MED LIST changes: +ASPI-516 CHEW; -ASPI81CH CHEW; -ATOR1TAB18 PO; +ATOR80TA45 PO; -IODIXANOL 320 MG/ML 10 ML VIAL (for Rad CT) IV ONE; -MAGN1TAB14 PO; +MAGN400T3 PO; -OMEP20TA PO; +OMEP20TA93 PO; -RANO500 PO; -ZITHTAB PO
[2017-04-02] MEDS ORDERED: ISOS30TA3 PO (10:45)
[2017-04-02] MEDS ORDERED: FERR325T18 PO (10:45)
[2017-04-02] MEDS ORDERED: VENTAER INH (10:46)
[2017-04-02] MEDS ORDERED: SODIUM CHLORIDE 0.9% FLUSH 10 ML FLUSH IVF PRN (11:00)
[2017-04-02] MEDS ORDERED: ASPIRIN 325 MG TAB PO ONE (11:00)
[2017-04-02] MEDS: NITROGLYCERIN 0.4 MG SL 25 TABS/BTL SL SCH ×3 (11:05→11:12)
--- NOTE | 2017-04-02 11:06 | PD ---
HPI Chief Complaint: Chest Pain Time Seen by Provider: 10:48 Travel History International Travel<30 days: No Contact w/Intl Traveler<30days: No Traveled to known affect area: No History of Present Illness HPI 71yo M with PMH of CAD, HTN, COPD, GERD presents to the ED with c/o chest pressure for 3 days. States it is left sided, constant and worst with lying down and exertion. Pt usually doesnt walk very far before sob but had been having sob while sitting down today. Denies any fever, n/v, focal weakness or numbness. Pt said he had bilateral inguinal hernia repair in February and has been having occasional abdominal pain but has not worsened. Also c/o right arm pain and possible blood clot. PFSH Past Medical History Cardiovascular Problems: Yes Chest Pain: Yes Gastrointestinal Disorders: Yes (GERD) Hiatal Hernia: Yes Hypertension: Yes Inguinal Hernia: Yes Respiratory: Yes Past Surgical History Coronary Artery Bypass Graft: Yes Coronary Stent: Yes Tonsillectomy: Yes Social History Alcohol Use: No Tobacco Use: No Substance Use: No Allergies-Medications (Allergen,Severity, Reaction): Coded Allergies: oxycodone (Unverified Allergy, Mild, Dizziness, 04/02/17) Reported Meds & Prescriptions Reported Meds & Active Scripts Active Nitroglycerin SL (Nitroglycerin) 0.4 Mg Subl 0.4 Mg SL DIRECTED PRN ONE TABLET UNDER THE TONGUE NEEDED FOR CHEST PAIN, MAY REPEAT EVERY FIVE MINUTES FOR A TOTAL OF 3 DOSES OR CALL 911 IF NO RELIEF Atorvastatin (Atorvastatin Calcium) 80 Mg Tab 80 Mg PO HS Reported Ventolin Hfa 18 GM Inh (Albuterol Sulfate) 90 Mcg/Act Aer 2 Puff INH Q4-6H PRN Ferrous Sulfate 325 Mg (65 Mg Iron) Tablet 325 Mg PO DAILY Isosorbide Mononitrate ER (Isosorbide Mononitrate) 30 Mg Hansa 30 Mg PO DAILY Metoprolol Tartrate 25 Mg Tab 12.5 Mg PO BID Aspirin 81 Mg Chew 81 Mg CHEW DAILY Magnesium 400 Mg Tab 400 Mg PO BID Fish Oil + D3 (Fish Oil-Cholecalciferol) 1,200-1,000 Mg-Unit Cap 1 Cap PO DAILY Review of Systems Except as stated in HPI: all other systems reviewed are Neg Physical Exam Narrative GENERAL: 71yo M in mild distress. SKIN: Focused skin assessment warm/dry. HEAD: Atraumatic. Normocephalic. EYES: Pupils equal and round. No scleral icterus. No injection or drainage. ENT: No nasal bleeding or discharge. Mucous membranes pink and moist. NECK: Trachea midline. No JVD. CARDIOVASCULAR: Regular rate and rhythm. No murmur appreciated. RESPIRATORY: No accessory muscle use. Clear to auscultation. Breath sounds equal bilaterally. GASTROINTESTINAL: Abdomen soft, non-tender, nondistended. MUSCULOSKELETAL: RUE: +Radial pulse. +hardening of superficial basilic vein. + Bilateral lower ext edema. NEUROLOGICAL: Awake and alert. No obvious cranial nerve deficits. Motor grossly within normal limits. Normal speech. PSYCHIATRIC: Appropriate mood and affect; insight and judgment normal. Data Data Last Documented VS Vital Signs Date Time Temp Pulse Resp B/P (MAP) Pulse Ox O2 Delivery O2 Flow Rate FiO2 04/02/17 11:14 97 Room Air 04/02/17 11:14 (114) 04/02/17 11:13 70 17 04/02/17 10:26 97.9 Orders Orders Electrocardiogram (04/02/17 10:48) Basic Metabolic Panel (Bmp) (04/02/17 10:48) Ckmb (Isoenzyme) Profile (04/02/17 10:48) Complete Blood Count With Diff (04/02/17 10:48) Magnesium (Mg) (04/02/17 10:48) Prothrombin Time / Inr (Pt) (04/02/17 10:48) Act Partial Throm Time (Ptt) (04/02/17 10:48) Troponin I (04/02/17 10:48) Chest, Single Ap (04/02/17 10:48) Ecg Monitoring (04/02/17 10:48) Bilateral Bp Monitoring (04/02/17 10:48) Iv Access Insert/Monitor (04/02/17 10:48) Oximetry (04/02/17 10:48) Oxygen Administration (04/02/17 10:48) Aspirin (Aspirin) (04/02/17 11:00) Sodium Chloride 0.9% Flush (Ns Flush) (04/02/17 11:00) Nitroglycerin Sl (Nitrostat Sl) (04/02/17 11:00) Us Arm Venous Doppler (04/02/17 ) B-Type Natriuretic Peptide (04/02/17 11:40) Admit Order (Ed Use Only) (04/02/17 13:25) Labs Laboratory Tests Test 04/02/17 11:10 04/02/17 13:00 White Blood Count 7.5 TH/MM3 7.5 TH/MM3 Red Blood Count 3.63 MIL/MM3 3.65 MIL/MM3 Hemoglobin 10.9 GM/DL 10.9 GM/DL Hematocrit 32.4 % 32.8 % Mean Corpuscular Volume 89.3 FL 89.9 FL Mean Corpuscular Hemoglobin 30.0 PG 29.8 PG Mean Corpuscular Hemoglobin Concent 33.6 % 33.1 % Red Cell Distribution Width 15.4 % 15.7 % Platelet Count 237 TH/MM3 240 TH/MM3 Mean Platelet Volume 8.0 FL 8.4 FL Neutrophils (%) (Auto) 77.3 % Lymphocytes (%) (Auto) 10.8 % Monocytes (%) (Auto) 8.1 % Eosinophils (%) (Auto) 3.1 % Basophils (%) (Auto) 0.7 % Neutrophils # (Auto) 5.8 TH/MM3 Lymphocytes # (Auto) 0.8 TH/MM3 Monocytes # (Auto) 0.6 TH/MM3 Eosinophils # (Auto) 0.2 TH/MM3 Basophils # (Auto) 0.0 TH/MM3 CBC Comment DIFF FINAL Differential Comment Prothrombin Time 10.3 SEC Prothromb Time International Ratio 1.0 RATIO Activated Partial Thromboplast Time 28.4 SEC Blood Urea Nitrogen 9 MG/DL Creatinine 1.23 MG/DL Random Glucose 99 MG/DL Calcium Level 9.1 MG/DL Magnesium Level 2.2 MG/DL Sodium Level 138 MEQ/L Potassium Level 3.5 MEQ/L Chloride Level 102 MEQ/L Carbon Dioxide Level 31.0 MEQ/L Anion Gap 5 MEQ/L Estimat Glomerular Filtration Rate 58 ML/MIN Total Creatine Kinase 66 U/L Troponin I 0.04 NG/ML B-Type Natriuretic Peptide 682 PG/ML MDM Medical Decision Making Medical Screen Exam Complete: Yes Emergency Medical Condition: Yes Interpretation(s) EKG: NSR 74bpm. ST depression diffusely that is similar to prior EKG on 2016. New 0.5-1mm ST elevation V2. Differential Diagnosis Unstable angina vs. CHF exacerbation vs. DVT vs. NSTEMI Narrative Course 71yo M with left sided chest pressure for 3 days that is worst with exertion. Normally he does not have chest pressure while sitting so this is new. Pt follows with [facility] clinician Dr. Chao. Labs reviewed, no leukocytosis. H/H low at 10.9/32.4 which is slightly lower than baseline. Troponin 0.04. BMP unremarkable. CXR showed cardiomegaly. No acute pulmonary disease. Pt given aspirin and sublingual nitro which improved chest pressure from a 7 to a 2. Will start heparin drip and admit for unstable angina. Cardiology consult placed, call place for Dr. Chao but have not heard back from him. Discussed with resident physician and accepted to their service. Critical Care Narrative Aggregate critical care time was 40 minutes. Time to perform other separately billable procedures was not included in the critical care time. My time did not include minutes spent treating any other patients simultaneously or on activities that did not directly contribute to the patient's treatment. The services I provided to this patient were to treat and/or prevent clinically significant deterioration that could result in: cardiovascular collapse or . I provided critical care services requiring my management, as noted below: Chart data review, documentation time, medication orders and management, vital sign assessments/reviewing monitor data, ordering and reviewing lab tests, ordering and interpreting/reviewing x-rays and diagnostic studies, care of the patient and discussion of the patient with the admitting physicians. [facility] Point of Care Internal Pos. & Neg. Controls: Passed Fecal Specimen Occult Blood: Negative Diagnosis Primary Impression: Unstable angina Admitting Information Admitting Physician Requests: Jany Pathak DO Apr 02, 2017 11:06
[2017-04-02 11:27] LABS: AUTOMATED NEUTROPHIL # 5.8 TH/MM3 (1.8-7.7); BASOPHIL % 0.7 % (0.0-2.0); EOSINOPHIL # 0.2 TH/MM3 (0-0.4); EOSINOPHIL % 3.1 % (0.0-4.0); HEMATOCRIT 32.4 % (39.0-51.0); HEMOGLOBIN 10.9 GM/DL (13.0-17.0); LYMPH % 10.8 % (9.0-44.0); LYMPHOCYTE # 0.8 TH/MM3 (1.0-4.8); MEAN CELL VOLUME 89.3 FL (80.0-100.0); MEAN CORPUSCULAR HGB CONC 33.6 % (32.0-36.0); MONO % 8.1 % (0.0-8.0); MONOCYTE # 0.6 TH/MM3 (0-0.9); NEUT % 77.3 % (16.0-70.0); PLATELET COUNT 237 TH/MM3 (150-450); RED BLOOD COUNT 3.63 MIL/MM3 (4.50-5.90); RED CELL DISTRIBUTION WIDTH 15.4 % (11.6-17.2); WHITE BLOOD COUNT 7.5 TH/MM3 (4.0-11.0)
--- NOTE | 2017-04-02 11:33 | RADRPT ---
EXAM DATE/TIME: 04/02/2017 11:07 [facility] COMPARISON: No previous studies available for comparison. INDICATIONS : Chest pain. MEDICAL HISTORY : Myocardial infarction. Emphysema. SURGICAL HISTORY : CABG. Coronary artery stent. ENCOUNTER: Initial ACUITY: 1 day PAIN SCORE: 5/10 LOCATION: Bilateral chest FINDINGS: The cardiac silhouette is normal in transverse diameter. Median sternotomy wires are present. There i s prominence of the aortic knob is with calcification characteristic of atherosclerotic vascular dise ase. The lungs are free of acute parenchymal opacity. No effusions are identified. CONCLUSION: 1. Cardiomegaly. No acute pulmonary disease. Devonte Fletcher MD on April 02, 2017 at 11:31 Board Certified Radiologist. This report was verified electronically.
[2017-04-02 11:34] LABS: PROTHROMBIN TIME - PATIENT 10.3 SEC (9.8-11.6)
[2017-04-02 11:47] LABS: CALCIUM 9.1 MG/DL (8.5-10.1); CREATININE 1.23 MG/DL (0.60-1.30); MAGNESIUM 2.2 MG/DL (1.5-2.5)
[2017-04-02 11:50] LABS: TROPONIN I 0.04 NG/ML (0.02-0.05)
--- NOTE | 2017-04-02 11:56 | RADRPT ---
EXAM DATE/TIME: 04/02/2017 11:16 [facility] COMPARISON: No previous studies available for comparison. INDICATIONS : Right arm swelling. MEDICAL HISTORY : Hypertension. Gastroesophageal reflux disease. Chest pain. Cardiac disorders. Hiatal hernia. Inguina l hernia. SURGICAL HISTORY : Tonsillectomy. CABG Coronary artery stent. ENCOUNTER: Initial ACUITY: 1 day PAIN SCORE: 2/10 LOCATION: Right arm. FINDINGS: Occlusive thrombus in the basalic vein in mid forearm extending into the proximal forearm. Cephalic vein is patent. Axillary vein is patent. CONCLUSION: Thrombosis basalic vein as above. Shamar Rudolph MD FACR on April 02, 2017 at 11:50 Board Certified Radiologist. This report was verified electronically.
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
[2017-04-02] MEDS ORDERED: SODIUM CHLORIDE 0.9% FLUSH 10 ML FLUSH IV FLUSH PRN ×2 (13:45→14:30)
[2017-04-02 13:53] LABS: HEMATOCRIT 32.8 % (39.0-51.0); HEMOGLOBIN 10.9 GM/DL (13.0-17.0); MEAN CELL VOLUME 89.9 FL (80.0-100.0); MEAN CORPUSCULAR HEMOGLOBIN 29.8 PG (27.0-34.0); MEAN CORPUSCULAR HGB CONC 33.1 % (32.0-36.0); MEAN PLATELET VOLUME 8.4 FL (7.0-11.0); PLATELET COUNT 240 TH/MM3 (150-450); RED BLOOD COUNT 3.65 MIL/MM3 (4.50-5.90); RED CELL DISTRIBUTION WIDTH 15.7 % (11.6-17.2); WHITE BLOOD COUNT 7.5 TH/MM3 (4.0-11.0)
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
[2017-04-02] MEDS: HEPARIN SODIUM - IV 10,000 UNITS/10 ML VIAL IV PUSH PRN (14:24)
[2017-04-02] MEDS ORDERED: ACETAMINOPHEN 325 MG TAB PO PRN (14:45)
[2017-04-02] MEDS ORDERED: PILL SPLITTER OTHER PRN (14:45)
[2017-04-02] MEDS ORDERED: MORPHINE SULFATE 2 MG/ML INJ IV PUSH PRN (14:45)
[2017-04-02] MEDS ORDERED: HEPARIN-D5W 25,000 U/250 ML 250 ML IV PRN (15:00)
[2017-04-02 17:33] LABS: PROTHROMBIN TIME - PATIENT 10.6 SEC (9.8-11.6)
[2017-04-02 17:56] LABS: TROPONIN I 0.29 NG/ML (0.02-0.05)
[2017-04-02] MEDS: MAGNESIUM OXIDE 400 MG TAB PO SCH (19:00)
[2017-04-02] MEDS: NITROGLYCERIN 0.4 MG SL 25 TABS/BTL SL PRN ×2 (19:17→19:23)
[2017-04-02] MEDS ORDERED: HEPARIN SODIUM - IV 10,000 UNITS/10 ML VIAL IV PUSH PRN (19:45)
[2017-04-02] MEDS: ATORVASTATIN 80 MG TAB PO SCH (20:48)
[2017-04-02] MEDS: SODIUM CHLORIDE 0.9% FLUSH 10 ML FLUSH IV FLUSH SCH (20:48)
[2017-04-02] MEDS: METOPROLOL TARTRATE 25 MG TAB PO SCH (20:48)
[2017-04-02] MEDS ORDERED: SODIUM CHLORIDE 0.9% FLUSH 10 ML FLUSH IV FLUSH SCH (21:00)
--- NOTE | 2017-04-02 21:12 | EKG ---
Date Performed: 04/02/2017 Time Performed: 10:29:52 PTAGE: 71 years EKG: Sinus rhythm POSSIBLE LEFT ATRIAL ENLARGEMENT NONSPECIFIC ST & T-WAVE ABNORMALITY BORDERLINE ECG PREVIOUS TRACING : 04/02/2017 10.25 Compared to prior tracing no significant change DOCTOR: Maximus Beach Interpretating Date/Time 04/02/2017 21:12:17
[2017-04-02] MEDS ORDERED: NITROGLYCERIN 2% OINT 1 GM PACKET TOPICAL PRN (23:15)
[2017-04-02] MEDS: RESP: ALBUTEROL 2.5 MG/3 ML NEB (PRN) NEB (23:39)
[2017-04-03] VITALS (23 sets, daily range): BP systolic 90–153; BP diastolic 56–83; PULSE 53–96; RESP 18; TEMP 98–99; O2SAT 96–98
[2017-04-03 00:38] LABS: BICARBONATE 28.8 MEQ/L (21.0-32.0); CALCIUM 8.4 MG/DL (8.5-10.1); CREATININE 1.15 MG/DL (0.60-1.30)
[2017-04-03] MEDS: HEPARIN SODIUM - IV 10,000 UNITS/10 ML VIAL IV PUSH PRN (00:38)
[2017-04-03 00:41] LABS: TROPONIN I 0.16 NG/ML (0.02-0.05)
[2017-04-03 06:56] LABS: HEMATOCRIT 30.4 % (39.0-51.0); HEMOGLOBIN 10.3 GM/DL (13.0-17.0); MEAN CELL VOLUME 89.1 FL (80.0-100.0); MEAN CORPUSCULAR HEMOGLOBIN 30.2 PG (27.0-34.0); MEAN CORPUSCULAR HGB CONC 33.9 % (32.0-36.0); MEAN PLATELET VOLUME 7.9 FL (7.0-11.0); PLATELET COUNT 231 TH/MM3 (150-450); RED BLOOD COUNT 3.41 MIL/MM3 (4.50-5.90); RED CELL DISTRIBUTION WIDTH 15.4 % (11.6-17.2)
[2017-04-03] MEDS ORDERED: ISOSORBIDE MONONITRATE 30 MG TAB PO SCH (07:00)
[2017-04-03] MEDS: SODIUM CHLORIDE 0.9% FLUSH 10 ML FLUSH IV FLUSH SCH ×2 (09:00→20:20)
[2017-04-03] MEDS ORDERED: ASPIRIN EC 325 MG TABEC PO SCH (09:00)
[2017-04-03] MEDS: FERROUS SULFATE 325 MG (65 MG ELEMENTAL IRON) TAB PO SCH (10:25)
[2017-04-03] MEDS: ASPIRIN 81 MG CHEW TAB CHEW SCH (10:26)
[2017-04-03] MEDS: METOPROLOL TARTRATE 25 MG TAB PO SCH (10:26)
[2017-04-03] MEDS: MAGNESIUM OXIDE 400 MG TAB PO SCH ×2 (10:28→20:23)
--- NOTE | 2017-04-03 10:40 | HHI.FPPN ---
Subjective Remarks Patient with chest pain overnight that required nitro. Had some associated shortness of breath with it. Per patient, his chest pain is exertional in nature and sounds typical of angina. It starts on the left side of his chest and sometimes radiates to his jaw and down his left arm. It occurs, for example , when he is carrying firewood inside the house or other activities of exertion. This morning he is resting comfortably in bed, and is not having chest pain. He feels mildly short of breath which has been chronic for him. He has no abdominal pain, except over the incision site of his recent inguinal hernia surgery. That site is without any evidence of infection. He has no calf tenderness of swelling. He has a good appetite, but is NPO currently in case of cardiac catheterization today. (Sachin Christina MD R3) Objective Vitals Vital Signs Date Time Temp Pulse Resp B/P (MAP) Pulse Ox O2 Delivery O2 Flow Rate FiO2 04/03/17 10:00 78 04/03/17 09:24 89 04/03/17 08:00 68 04/03/17 07:00 99.0 64 18 120/71 (87) 96 04/03/17 07:00 Nasal Cannula 2.00 04/03/17 07:00 66 04/03/17 06:00 55 04/03/17 05:00 53 04/03/17 04:00 Nasal Cannula 2.00 04/03/17 04:00 58 04/03/17 04:00 98.2 58 18 144/83 (103) 98 04/03/17 03:00 58 04/03/17 02:00 60 04/03/17 01:00 66 04/03/17 00:00 98.3 62 18 153/79 (103) 96 04/03/17 00:00 Nasal Cannula 2.00 04/03/17 00:00 62 04/02/17 23:41 98 Nasal Cannula 1.00 04/02/17 23:00 69 04/02/17 22:00 83 04/02/17 21:00 76 04/02/17 20:00 98.0 68 20 159/91 (113) 97 04/02/17 20:00 68 04/02/17 20:00 Nasal Cannula 2.00 04/02/17 19:36 140/91 (107) 04/02/17 19:32 149/98 (115) 04/02/17 19:32 149/98 (115) 04/02/17 19:27 150/95 (113) 04/02/17 19:23 14 04/02/17 19:22 154/109 (124) 04/02/17 18:50 98.3 98 12 156/94 (114) 99 04/02/17 18:00 82 04/02/17 17:00 68 04/02/17 16:00 64 04/02/17 15:52 65 04/02/17 15:20 04/02/17 15:00 65 20 140/87 (104) 97 04/02/17 11:14 97 Room Air 04/02/17 11:14 (114) Room Air 04/02/17 11:13 70 17 172/85 (114) 97 Room Air 178/82 (114) 04/02/17 10:31 72 18 100 I/O 04/02/17 04/02/17 04/02/17 04/03/17 04/03/17 04/03/17 07:00 15:00 23:00 07:00 15:00 23:00 Intake Total 820 ml Output Total 600 ml 700 ml Balance -600 ml 120 ml Intake Oral 720 ml IV Total 100 ml Output Urine Total 600 ml 700 ml # Bowel Movements 0 (Sachin Christina MD R3) Result Diagram: 04/03/17 0638 04/02/17 2342 Imaging Last 72 hours Impressions Chest X-Ray 04/02/17 1048 Signed Impressions: Service Date/Time: Sunday, April 02, 2017 11:07 - CONCLUSION: 1. Cardiomegaly. No acute pulmonary disease. Devonte Fletcher MD Upper Extremity Ultrasound 04/02/17 0000 Signed Impressions: Service Date/Time: Sunday, April 02, 2017 11:16 - CONCLUSION: Thrombosis basalic vein as above. Shamar Rudolph MD FACR Objective Remarks General: No distress, sitting up in bed, pleasant demeanor Skin: No rashes or lesions, has incision site in suprapubic region associated with recent inguinal hernia repair, no swelling or drainage from the site, does not appear infected HEENT: Normocephalic, no conjunctivitis, no nasal discharge CV: RRR, 2/6 systolic ejection murmur over aortic valve, carotid bruits bilaterally Lungs: CTAB, no wheezing, rales, or rhonchi GI Soft, nontender, nondistended, normal bowel sounds Ext: No swelling or pain Neuro: Awake, alert, no distress, comfortable (Sachin Christina MD R3) A/P Assessment and Plan 71-year-old male with extensive coronary artery disease history presenting with unstable angina. Discharge Planning Pending heart cath versus perfusion scanning and discharge plan. Will need close follow up with cardiology and primary care. Recommended following a heart healthy diet and taking all medications as prescribed. (Sachin Christina MD R3) Attending Attestation THIS CASE WAS DISCUSSED WITH THE RESIDENT PHYSICIANS.PATIENT SEEN AND EXAMINED, I HAVE REVIEWED THE RECORD AND AGREE WITH THE ABOVE NOTE AND PLAN OF CARE WAS DISCUSSED. I HAVE AUTHORIZED THE ORDER SET (Wilbert Joseph MD) Problem List: (1) Unstable angina ICD Codes: I20.0 - Unstable angina Status: Acute Plan: History consistent with unstable angina EKG with non-specific ST depressions in V1, V3; isolated J-point elevation in V2 Troponin 0.04, 0.29, 0.16 BNP 682, cardiomegaly on chest x-ray - 2D Echo comp w/ doppler pending - Heparin drip titrated per protocol - Continue aspirin 81 mg daily, will need addition of Plavix versus prasugrel versus ticagrelor after cath or MPI. Had occluded stent while on Plavix in the past. - Nitroglycerin, morphine PRN for chest pain - Continue high dose statin, atorvastatin 80 mg qHS - Continue home metoprolol 12.5 mg bid - Had been on Prasugrel, but has not been taking since his inguinal hernia repair on 03/24/17 - Will start ACEi before discharge - PT eval & tx; may need cardiac rehab on discharge - Recommend heart healthy diet. He is not a smoker currently. (2) CAD (coronary artery disease) ICD Codes: I25.10 - Atherosclerotic heart disease of red devil coronary artery without angina pectoris Status: Chronic Plan: Last heart cath July 2016 showed: 1. Total occlusion of L main and right coronary arteries 2. Widely patent Y-graft to the LAD and left circumflex, widely patent vein graft to the right coronary artery with a patent stent at its ostium 3. Suboptimal L ventriculogram; suggestion of diffuse hypokinesis with EF very roughly estimated at 40% 4. S/p intravascular ultrasound imaging of vein graft to RCA - See above plan (3) Cardiomegaly ICD Codes: I51.7 - Cardiomegaly Status: Chronic Plan: Cardiomegaly on x-ray and elevated BNP, and with exertional dyspnea. Likely underlying congestive heart failure with prior IN's. - Follow up ECHO - Continue beta erickson, add ervin inhibitor before discharge - Recommend low sodium diet (4) Essential hypertension ICD Codes: I10 - Essential (primary) hypertension Status: Chronic Plan: - Continue metoprolol 12.5 mg bid - Add ERVIN inhibitor before discharge (5) FEN/PPX Plan: Fluids: PO only Elecs: Monitor and replace as needed Nutrition: Diet heart healthy, 2 gm sodium restriction, 1800 cc fluid restriction (NPO in case of catheterization today) DVT: On heparin ggt CODE STATUS: Full code (Sachin Christina MD R3) Problem Qualifiers (1) CAD (coronary artery disease): Qualified Codes: I25.700 - Atherosclerosis of coronary artery bypass graft(s), unspecified, with unstable angina pectoris Sachin Christina MD R3 Apr 03, 2017 10:40 Wilbert Joseph MD Apr 06, 2017 09:45
[2017-04-03] MEDS ORDERED: DIAZEPAM 2 MG TAB PO PRN (11:30)
--- NOTE | 2017-04-03 13:01 | EKG ---
Date Performed: 04/02/2017 Time Performed: 14:46:05 PTAGE: 71 years EKG: Sinus rhythm WITH SINUS ARRHYTHMIA NONSPECIFIC ST & T-WAVE ABNORMALITY BORDERLINE ECG PREVIOUS TRACING : 04/02/2017 10.29 Borderline voltage for LVH. Since previous tracing, no sign ificant change. DOCTOR: Jw Vega Interpretating Date/Time 04/03/2017 13:00:20
--- NOTE | 2017-04-03 13:02 | EKG ---
Date Performed: 04/03/2017 Time Performed: 00:12:48 PTAGE: 71 years EKG: Sinus rhythm Extensive ST-T changes are nonspecific Borderline ECG PREVIOUS TRACING 04/02/2017 Borderline LVH by voltage. Since previous tracing, no significant change. DOCTOR: Jw Vega Interpretating Date/Time 04/03/2017 13:02:11
--- NOTE | 2017-04-03 13:02 | EKG ---
Date Performed: 04/02/2017 Time Performed: 19:01:06 PTAGE: 71 years EKG: Sinus rhythm . Diffuse nonspecific ST-T change Borderline voltage criteria for LVH OR interval is borderline short Abnormal ECG PREVIOUS TRACING : 04/02/2017 14.46 Since previous tracing, no significant change. DOCTOR: Jw Vega Interpretating Date/Time 04/03/2017 13:01:12
[2017-04-03] MEDS ORDERED: HEPARIN-NS/PF INJ 1,000 ML ONE (13:38)
[2017-04-03] MEDS ORDERED: IOHEXOL 350 MG/ML 100 ML BTL (for Cath Lab) OTHER ONE (13:45)
[2017-04-03] MEDS ORDERED: MIDAZOLAM HCL 2 MG/2 ML VIAL ONE ×2 (13:54→14:12)
[2017-04-03] MEDS ORDERED: HEPARIN SODIUM - IV 10,000 UNITS/10 ML VIAL ONE (14:00)
--- NOTE | 2017-04-03 14:51 | CATHPROC ---
[employer] HIS Report Study Information Study Number Admission Scheduled Start Study Start [id number] Apr 02 2017 1:26PM 04/03/2017 Apr 03 2017 1:27PM [place] Service Cardiac Catheterization Admit Source Facility Department Emergency department [facility] - Optical Manager Physician and Clinical Staff Initial MD Bishop, Tray Header Up Kyung Sim BSN Header Up Roro Dunn Recorder Latha Christian,RT(R) (BS) Scrub Lio Menard,RT(R) Procedures Performed Procedure Location (Site) Vessel Name Coronary Angiograms SVG-LAD Left Coronary Coronary Angiograms SVG-RCA Right Coronary L Heart Cath Wire insertion Fem Art (right) Femoral Art Equipment Time Route Sales Delivery Driver Description Size Mfg Part Number Used/Scraped TRANSDUCER, TRNew VisionMAXIM [id number] 13:35 Haloband * Used W/KALEB *[id number] 14:34 ChalkflyVA MEDICAL VASCADE, FR6 CLOSURE SYSTEM FR 6\7 Used *[id number] INTRODUCER SET, 13:35 [employer] FR 5 [id number] *[id number] Used MICROPUNCTURE, STIFFENED [id number] *[id number] [id number] *[id number] 13:35 appiris INDUSTRIES PACK, CCL CUSTOM * Used *[id number] 14:15 MEDTRONIC JL 4.0 DXTERITY CATHETER FR 5 Used *[id number] 13:35 Boke MEDICAL WIRE, 3MMJ .035 180CM 180CM Used *[id number] 13:35 NAMIC MANIFOLD, 4 PORT * Used *[id number] 13:35 NYCOMED OMNIPAQUE, 350 MG, 150ML 150ML [id number] Used [id number] 13:35 VILLALTA MEDICAL BLANKET,WARM AIR CCL * Used *[id number] 13:35 TERUMO MEDICAL SHEATH, FR5 TERUMO (10CM) FR 5 Used *[id number] Equipment Model, Serial, Lot Number and Expiration Data Description Model Number Serial Number Lot Number Expiration Date JL 4.0 DXTERITY CATHETER [id number] 10-29-2019 History: Current Medications Medication Dosage/Unit Route Frequency Last Date/Time Taken HEPARIN ASA LOPRESSOR History: Allergies Allergy Reaction oxycodone Dizziness Oxycontin History: Risk Factors Family History of Hypertension Dyslipidemia Previous MO Previous Heart Failure Premature CAD Yes Yes No No No Prior Valve Prior PCI Prior PCIDate Prior CABG Prior CABGDate Surgery No Yes 08/19/2016 Yes 07/27/1997 Cerebrovascular Peripheral Artery Chronic Lung On Dialysis Diabetes Disease Disease Disease No No Yes Yes No History: Symptoms/Diagnosis Selection Items Chest pain SOB History: CV Disease Selection Items Known CAD History: Stress Tests Stress or Imaging Studies Performed No History: Other Disease Selection Items CAD Cancer COPD HTN History: Other Current Smoker Method Quit Packs a Day Years Used Pack Years No Cigarettes 19 Years Ago 3 40 120 Labs Hgb (g/dl) Hct (%) WBC (l/cumm) Platelets (thousands) 11.60-17.00 35.00-51.00 4.00-11.00 150.00-450.00 10.3 30.4 7 231 Glucose (mg/dl) BUN (mg/dl) Creatinine (mg/dl) BUN:Creatinine (1:x) 74.00-106.00 7.00-18.00 0.50-1.30 10.00-20.00 97 10 1.1 9.1 Na (meq/l) K (meq/l) 136.00-145.00 3.50-5.10 140 3.6 INR (PTT:PT) 0.90-1.10 1 Troponin I (ng/ml) CPK (u/l) CPK-MB (ng/ML) 0.02-0.05 26.00-308.00 0.50-3.60 0.16 45 Not Drawn Medication Medication Total Dose (Bolus/Oral) Medication Total Dosage/Unit 1% XYLOCAINE 20 mL FENTANYL 150 mcg VERSED 4 mg Medications (Bolus/Oral) Medication Time Given Dosage/Unit Administered By Reason VERSED 04/03/2017 2:05:56 PM 2 mg Kyung Sim 2 mg VERSED given in lab by Kyung Sim BSN in Right Hand via Peripheral IV. FENTANYL 04/03/2017 2:06:02 PM 50 mcg Kyung Sim 50 mcg FENTANYL given in lab by Kyung Sim BSN in Right Hand via Peripheral IV. 1% XYLOCAINE 04/03/2017 2:06:08 PM 20 mL Adamson-Carlota, Tray 20 mL 1% XYLOCAINE given in lab by Tray Bishop in Right Groin via Subcutaneous. FENTANYL 04/03/2017 2:10:43 PM 25 mcg Kyung Sim 25 mcg FENTANYL given in lab by Kyung Sim BSN in Right Hand via Peripheral IV. VERSED 04/03/2017 2:13:30 PM 2 mg Kyung Sim 2 mg VERSED given in lab by Kyung Sim BSN in Right Hand via Peripheral IV. FENTANYL 04/03/2017 2:14:02 PM 25 mcg Kyung Sim 25 mcg FENTANYL given in lab by Kyung Sim BSN in Right Hand via Peripheral IV. FENTANYL 04/03/2017 2:32:54 PM 50 mcg Roro Dunn 50 mcg FENTANYL given in lab by Roro Dunn in Right Hand via Peripheral IV. Medication (Drip) Medication Time Given Dosage/Unit Concentration/Unit Diluent (ml) Solution HEPARIN DRIP STOPPED 04/03/2017 1:38:35 PM 0 units/hr 0 Patient arrived on 0 units/hr HEPARIN DRIP STOPPED given by Kyung Sim BSN. Pump/Drip Flow = 0 ml/hr using [Solution Name]. IV Solutions 04/03/2017 1:54:52 PM 50 mL (IV) 500 NaCl .9 IV Solutions given in lab by Kyung Sim BSN in Right Hand via Peripheral IV. Pump/Drip Flow using NaCl .9. Initial Case Assessment Cardiovascular HR Rhythm NIBP Chest Pain 63 reg 169/91 0 Edema Present Skin color Skin None Normal Warm Dry Circulatory - Right Pulses Dorsalis Pedis Femoral 3 3 Scale (0,1,2,3,4,d) Circulatory - Left Pulses Dorsalis Pedis Femoral d 3 Scale (0,1,2,3,4,d) Circulatory - Lower Extremities Color Lower Right Color Lower Left Normal Normal Neurological State Oriented to time-place- Alert Moves all extremities person Respiration - General Respiration Rate SpO2 (%) O2 (lpm) (B/min) 11 98 2 Chronological Log Time Study Chronological Log Patient arrived on 0 units/hr HEPARIN DRIP STOPPED given by Kyung Sim BSN. Pump/Drip Flow = 0 ml/hr 13:38:35 using [Solution Name]. 13:42:57 Patient arrived via Bed. 13:42:58 Patient Name, D.O.B, / Armband Verified By R.N. Vitals capture started with the following parameters, Patient=Adult, Interval=5 min, Initial Pr fvpclc=893 mmHg, 13:54:07 Deflation Rate=5 mmHg, Cuff placed on Left Arm 13:54:16 Bilateral groins prepped with 2% chlorhexidine, and draped after a 3 minute waiting time. 13:54:23 Consent signed by the physician and the patient and verified by the Optical Manager staff. 13:54:24 Pre-op and post- op instructions given; patient acknowledges understanding of instructions. 13:54:29 Verbal Stimulation=2 Physical Stimulation=2 Airway=2 Respiration=2 TOTAL=8. (0=absent, 1=li mited, 2=present) 13:54:31 Presedation assessment performed by Optical Manager RN. 13:54:44 Patient has been NPO for More than 6Hrs. 13:54:45 Skin Breakdown hernia surgery 03/24/17. Bandaids covering incisions. 13:54:46 Patient Warmer Placed on the Table. 13:54:49 Mariya Prominences Protected 13:54:51 A # 20 IV was noted in the Hand (right). Grade = 0 13:54:52 IV Solutions given in lab by Kyung Sim BSN in Right Hand via Peripheral IV. Pump /Drip Flow using NaCl .9. 13:54:53 History and physical on the chart or being dictated. Assessment: Initial Case, HR=63 BPM, Rhythm=reg, TMNA=386/91 mmhg, Chest Pain=0, Edema=None, Co gil=Normal, Skin = Warm, Dry Right Pulses: João Ped=3, Femoral=3 Left Pulses: João Ped=d, Femoral=3 13:54:54 Lower Right Extremities: Color=Normal Lower Left Extremities: Color=Normal Neurological: State=Alert, Ox3, CORBETT Respiration: Resp=11 B/min, SpO2=98 %, O2=2 lpm 13:55:07 HR=63 bpm, SIDU=274/91 mmhg, SpO2=96.0 %, Resp=15 B/min, Pain=0, Vincent=10, Haley=2 13:59:48 HR=63 bpm, AGSA=441/103 mmhg, SpO2=99.0 %, Resp=12 B/min, Pain=0, Vincent=10, Haley=2 14:00:04 paged 14:01:58 Pressure channel 1 zeroed. 14:02:56 MD arrived Time Out. Correct patient, correct procedure, correct physician, power injector not loaded with contrast with surgical 14:04:44 team present. Time Out Concurred by MD and individual staff in procedure. 14:04:49 HR=67 bpm, CNVJ=217/100 mmhg, SpO2=99.0 %, Resp=12 B/min, Pain=0, Vincent=10, Haley=2 14:05:24 Case Start 14:05:56 2 mg VERSED given in lab by Kyung Sim BSN in Right Hand via Peripheral IV. 14:06:02 50 mcg FENTANYL given in lab by Kyung Sim BSN in Right Hand via Peripheral IV. 14:06:08 20 mL 1% XYLOCAINE given in lab by Tray Bishop in Right Groin via Subcutaneous. 14:06:41 Reference ECG taken 14:09:48 HR=67 bpm, CZPZ=580/100 mmhg, SpO2=95.0 %, Resp=15 B/min, Pain=0, Vincent=10, Haley=2 14:09:58 Access site was Right Femoral Artery. A INTRODUCER SET, MICROPUNCTURE, STIFFENED FR 5 was advanced into the Fem Art (right) using the 14::05 Percutaneous technique. 14:10:43 25 mcg FENTANYL given in lab by Kyung Sim BSN in Right Hand via Peripheral IV. 14:12:04 A WIRE, 3MMJ .035 180CM 180CM was inserted via Fem Art (right). A SHEATH, FR5 TERUMO (10CM) FR 5 was exchanged in the Fem Art (right). This was necessary in or [place] to 14:13:02 accomodate a larger catheter. 14:13:30 2 mg VERSED given in lab by Kyung Sim BSN in Right Hand via Peripheral IV. 14:14:02 25 mcg FENTANYL given in lab by Kyung Sim BSN in Right Hand via Peripheral IV. A JR 4.0 INFINITI CATHETER FR 5 was advanced over a wire. OMNIPAQUE, 350 MG, 150ML 150ML was us ed for 14:14:07 injections. 14:14:51 HR=78 bpm, NPSE=978/106 mmhg, SpO2=95.0 %, Resp=15 B/min, Pain=0, Vincent=10, Haley=2 Recorded Pressure: Ao, HR=75, Condition=Condition 1 14:15:17 (Aorta) Ao 213/84/136 Recorded Pressure: LV, HR=72, Condition=Condition 1 14:16:32 (Left Ventricle) LV 215/13/23 14:17:45 The Y graft-LAD and Circ was injected and visualized at various angles. OMNIPAQUE, 350 MG, 150ML 150ML used. 14:19:50 HR=78 bpm, JWDS=884/83 mmhg, SpO2=92.0 %, Resp=15 B/min, Pain=0, Vincent=10, Haley=2 After removing the current catheter a MPA-2 INFINITI CATHETER FR 5 was advanced over a WIRE, 3M MJ .035 180CM 14:20:14 180CM. 14:22:58 The SVG-RCA was injected and visualized at various angles. OMNIPAQUE, 350 MG, 150ML 150ML u sed. 14:24:43 HR=79 bpm, LUIG=401/83 mmhg, SpO2=97.0 %, Resp=15 B/min, Pain=0, Vincent=10, Haley=2 14:29:46 HR=75 bpm, QFMG=424/82 mmhg, SpO2=97.0 %, Resp=15 B/min, Pain=0, Vincent=10, Haley=2 14:31:53 Catheter was removed 14:32:34 An injection in the Fem Art (right) was made through the SHEATH, FR5 TERUMO (10CM) FR 5. 14:32:54 50 mcg FENTANYL given in lab by Roro Dunn in Right Hand via Peripheral IV. 14:34:04 VASCADE, FR6 CLOSURE SYSTEM FR 6\7 placement in the Fem Art (right) 14:35:24 HR=78 bpm, FGIE=392/94 mmhg, SpO2=99.0 %, Resp=15 B/min, Pain=0, Vincent=10, Haley=2 14:38:08 Case End 14:39:26 Catheter(s) removed without difficulty 14:39:31 No case complications noted. 14:39:35 Bedside Report will be given. 14:39:38 Implantable Device card placed in patient's chart. 14:39:45 A Left Heart Cath was performed. 14:39:49 HR=75 bpm, VAWE=857/99 mmhg, SpO2=98.0 %, Resp=15 B/min, Pain=0, Vincent=10, Haley=2 14:44:48 HR=72 bpm, LTDP=413/95 mmhg, SpO2=97.0 %, Resp=15 B/min, Pain=0, Vincent=10, Haley=2 14:46:17 Sterile dressing applied to site 14:49:24 Vitals capture stopped. 14:49:51 Called [facility]. Spoke to Felicita. 14:54:14 Patient moved to [facility] End Study - Contrast Media Used In Study Contrast Total Opened (mL) Total Used (mL) Total Wasted (mL) Omnipaque 80 80 0 End Study - Maximum Contrast Load Max Contrast Load (mL) 359.1 End Study - Radiation Exposure Fluoro Time (minutes) 9.7 End Study - Sheaths Sheaths Pulled By Sheath Hold Time (min) Tray Bishop End Study - Patient Disposition Complications Transferred To Interventional Outcome No Telemetry Bed No attempt made
[2017-04-03] MEDS ORDERED: ONDANSETRON HCL 4 MG/2 ML VIAL IV PUSH PRN (15:00)
[2017-04-03] MEDS ORDERED: MISC INFORMATION XX ONE (15:00)
[2017-04-03] MEDS ORDERED: ATROPINE SULFATE 1 MG/ML VIAL IV PUSH PRN (15:00)
[2017-04-03] MEDS: LISINOPRIL 20 MG TAB PO SCH (15:00)
[2017-04-03] MEDS: CLOPIDOGREL 75 MG TAB PO SCH (15:00)
--- NOTE | 2017-04-03 17:14 | MA ---
cc: EDE RAYGOZA DATE: 04/03/2017. PROCEDURE PERFORMED: 1. Left heart catheterization. 2. Selective graft angiography. APPROACH: Right transfemoral. INDICATIONS FOR THE PROCEDURE: Chest pain, elevated troponins, [id number] MO. DESCRIPTION OF THE PROCEDURE IN DETAIL: Consent signed. The patient was brought into the cardiac blood bank laboratory professional in A fasting state. The right groin was prepped and draped in the sterile fashion using 1% lidocaine for local anesthesia and a micropuncture kit. A 6-Kyrgyz sheath was inserted in the right common femoral artery. A right common femoral artery angiography was performed to confirm position of the sheath. The patient is known to have an complete occlusion of the left main as well as of the right coronary artery; thus, coronary angiography was not performed and we went straight to graft angiography for this. The saphenous vein graft going to the right coronary artery was engaged with multiple post diagnostic catheters and the saphenous vein graft going to the LAD and the left circumflex was engaged with a JR-4 diagnostic catheter. Angiography was taken in multiple views. The JR-4 was introduced into the ventricle for pressure recordings. All catheters were exchanged for a wire. The patient tolerated the procedure well without complications. ESTIMATED BLOOD LOSS: Estimated blood loss was less than 10 mL. TOTAL CONTRAST USED: 80 mL. The right groin access site was closed with a basket closure device. HEMODYNAMIC RESULTS: The left ventricular pressure was 250/30 with left ventricular end diastolic pressure of 23. The aortic pressure was 113/84 with a mean of 136. There was no gradient upon pullback from the left ventricle to the aorta. ANGIOGRAPHIC RESULTS: CORONARY ANGIOGRAPHY: The left main is completely occluded at its origin as well as the right coronary artery. This is known from a previous cath that was reviewed by me and done by Dr. Chao in July of 2016. GRAFT ANGIOGRAPHY: The Y graft to the left anterior descending and the left circumflex artery is widely patent. The [place] mid to distal left anterior descending has minimal luminal irregularities. The [place] mid to distal left circumflex has mild diffuse disease. The ostial to proximal left circumflex artery has diffuse disease. The saphenous vein graft going to the right coronary artery is widely patent. There is a stent in its ostium. The stent is widely patent. There is a globular density seen just distal to the stent which is unchanged since the last cath. This portion was also IVUS'd during the last cath, and it was unremarkable. CONCLUSIONS: 1. Unchanged angiography since last left heart catheterization. He has a patent Y graft to the left anterior descending and the left circumflex artery as well as a patent saphenous vein graft to the right coronary artery with a patent stent in the ostium. 2. Elevated left ventricular end diastolic pressure. 3. Uncontrolled hypertension RECOMMENDATIONS: 1. Continue aggressive medical management for secondary prevention of coronary artery disease. Heparin drip can be stopped. 2. Continue aspirin. 3. Start Plavix continue and optimize long-acting nitrates, beta blockers, statins and ERVIN inhibitors. 4. Follow up with Dr. Chao upon discharge MD VERONICA Kimble/ALFONSO /2:33 PM /4:49 PM DAVID
[2017-04-03] MEDS: ATORVASTATIN 80 MG TAB PO SCH (20:20)
[2017-04-03] MEDS ORDERED: METOPROLOL TARTRATE 50 MG TAB PO SCH (21:00)
[2017-04-04] VITALS (26 sets, daily range): BP systolic 101–128; BP diastolic 65–79; PULSE 51–75; RESP 18–20; TEMP 97.7–98.3; O2SAT 95–100
[2017-04-04] MEDS: ISOSORBIDE MONONITRATE 60 MG TAB PO SCH (06:36)
[2017-04-04] MEDS: CLOPIDOGREL 75 MG TAB PO SCH (09:38)
[2017-04-04] MEDS: SODIUM CHLORIDE 0.9% FLUSH 10 ML FLUSH IV FLUSH SCH ×2 (09:39→20:14)
[2017-04-04] MEDS: ASPIRIN 81 MG CHEW TAB CHEW SCH (09:39)
[2017-04-04] MEDS: FERROUS SULFATE 325 MG (65 MG ELEMENTAL IRON) TAB PO SCH (09:39)
[2017-04-04] MEDS: LISINOPRIL 20 MG TAB PO SCH (09:39)
[2017-04-04 09:42] LABS: HEMATOCRIT 32.4 % (39.0-51.0); HEMOGLOBIN 10.7 GM/DL (13.0-17.0); MEAN CELL VOLUME 89.8 FL (80.0-100.0); MEAN CORPUSCULAR HEMOGLOBIN 29.7 PG (27.0-34.0); MEAN CORPUSCULAR HGB CONC 33.1 % (32.0-36.0); PLATELET COUNT 247 TH/MM3 (150-450); RED BLOOD COUNT 3.61 MIL/MM3 (4.50-5.90); RED CELL DISTRIBUTION WIDTH 15.9 % (11.6-17.2); WHITE BLOOD COUNT 7.2 TH/MM3 (4.0-11.0)
[2017-04-04] MEDS: METOPROLOL TARTRATE 25 MG TAB PO SCH ×2 (09:45→20:14)
--- NOTE | 2017-04-04 09:54 | HHI.FPPN ---
Subjective Remarks Sitting up in chair this morning, no distress. Has some baseline shortness of breath that he's been experiencing at home. Vague left sided intermittent chest pain continues, not severe over night. Blood pressures were on the low side after starting new BP medicines and increasing doses of old BP medicines. He felt a little lightheaded with BP being low. Will scale back slightly on BP medicines today. Has left lower quadrant abdominal pain since his inguinal surgery recently. Tried to have a bowel movement today but was not successful. Has normal urination. No calf swelling or tenderness. Normal appetite. Objective Vitals Vital Signs Date Time Temp Pulse Resp B/P (MAP) Pulse Ox O2 Delivery O2 Flow Rate FiO2 04/04/17 08:49 95 21 04/04/17 07:23 96 Room Air 04/04/17 07:23 97.7 66 20 107/67 (80) 96 04/04/17 04:00 98.3 61 18 106/66 (79) 97 04/04/17 04:00 61 04/04/17 04:00 Room Air 04/04/17 03:00 60 04/04/17 02:00 57 04/04/17 01:00 56 04/04/17 00:00 98.1 75 18 112/70 (84) 97 04/04/17 00:00 Room Air 04/04/17 00:00 58 04/03/17 23:00 55 04/03/17 22:00 58 04/03/17 21:00 60 04/03/17 20:00 68 04/03/17 20:00 98.0 68 18 90/56 (67) 97 04/03/17 20:00 Room Air 04/03/17 18:00 74 04/03/17 17:00 66 04/03/17 16:00 74 04/03/17 15:09 98.2 57 18 147/77 (100) 96 04/03/17 15:09 57 04/03/17 15:02 1.00 04/03/17 14:00 74 04/03/17 13:00 77 04/03/17 12:00 96 04/03/17 11:00 98.3 89 18 141/77 (98) 97 04/03/17 11:00 89 04/03/17 10:00 78 I/O 1/6/18 104/03/17 04/04/17 04/04/17 04/04/17 07:00 15:00 23:00 07:00 15:00 23:00 Intake Total 820 ml 1200 ml 750 ml Output Total 700 ml 650 ml 700 ml Balance 120 ml 550 ml 50 ml Intake Oral 720 ml 1200 ml 750 ml IV Total 100 ml Output Urine Total 700 ml 650 ml 700 ml # Bowel Movements 0 0 Result Diagram: 04/04/17 0855 04/02/17 2342 Imaging Last 72 hours Impressions Chest X-Ray 04/02/17 1048 Signed Impressions: Service Date/Time: Sunday, April 02, 2017 11:07 - CONCLUSION: 1. Cardiomegaly. No acute pulmonary disease. Devonte Fletcher MD Upper Extremity Ultrasound 04/02/17 0000 Signed Impressions: Service Date/Time: Sunday, April 02, 2017 11:16 - CONCLUSION: Thrombosis basalic vein as above. Shamar Rudolph MD FACR Objective Remarks General: No distress, sitting up in chair Skin: No rashes or lesions, has incision site in suprapubic region associated with recent inguinal hernia repair, some ecchymosis associated with the surgery , no swelling or drainage from the site, does not appear infected HEENT: Normocephalic, no conjunctivitis, no nasal discharge CV: RRR, 3/6 systolic ejection murmur heard best over aortic valve, carotid bruits bilaterally Lungs: CTAB, no wheezing, rales, or rhonchi GI Soft, nontender, nondistended, normal bowel sounds Ext: No swelling or pain Neuro: Awake, alert, no distress, comfortable Procedures Cardiac catheterization 04/03/17 A/P Assessment and Plan 71-year-old male with extensive coronary artery disease history presenting with symptoms of unstable angina. Discharge Planning Likely discharge home today pending resolution of hypotension with newly added BP medicine. Recommended following a heart healthy diet, a graded exercise program under supervision of physician, and taking all medications as prescribed. Recommended following closely with cardiology and primary care after discharge. Will go home with home health and physical therapy. Problem List: (1) Unstable angina ICD Codes: I20.0 - Unstable angina Status: Acute Plan: History consistent with unstable angina EKG with non-specific ST depressions in V1, V3; isolated J-point elevation in V2 Troponin 0.04, 0.29, 0.16 BNP 682, cardiomegaly on chest x-ray Heparin drip initially, now discontinued - 2D Echo comp w/ Doppler pending due to symptoms consistent with CHF, increased BNP. cardiomegaly. If cannot be performed today in the hospital he may need to have it done as an outpatient. - Continue aspirin 81 mg daily, added Plavix 75 mg daily. - Nitroglycerin, morphine PRN for chest pain - Continue high dose atorvastatin 80 mg qHS - Metoprolol increased from 12.5 mg bid to 50 mg bid. However, due to low blood pressures and lightheadedness, will decrease to 25 mg bid and monitor. - Lisinopril 20 mg daily, will need outpatient BMP after discharge. - PT eval & tx; would benefit from cardiac rehab on discharge - Recommend heart healthy diet. He is not a smoker currently. (2) CAD (coronary artery disease) ICD Codes: I25.10 - Atherosclerotic heart disease of [place] coronary artery without angina pectoris Status: Chronic Plan: Last heart cath July 2016 showed: 1. Total occlusion of L main and right coronary arteries 2. Widely patent Y-graft to the LAD and left circumflex, widely patent vein graft to the right coronary artery with a patent stent at its ostium 3. Suboptimal L ventriculogram; suggestion of diffuse hypokinesis with EF very roughly estimated at 40% 4. S/p intravascular ultrasound imaging of vein graft to RCA - See above plan (3) Cardiomegaly ICD Codes: I51.7 - Cardiomegaly Status: Chronic Plan: Cardiomegaly on x-ray and elevated BNP, and with exertional dyspnea. Likely underlying congestive heart failure with prior SC's. - Follow up ECHO, may need to get outpatient if not performed today - Continue beta erickson, ERVIN inhibitor. - May benefit from aldosterone antagonist depending on ejection fraction. - Recommend low sodium diet, moderate fluid restriction, daily weights at home. - Recommend heart healthy diet, cardiac rehabilitation. (4) Essential hypertension ICD Codes: I10 - Essential (primary) hypertension Status: Chronic Plan: Initially hypertensive, now with hypotension with increases in BP medicine and addition of new BP medicine. - Metoprolol 50 mg bid, decrease to 25 mg bid for hypotension. - Added lisinopril 30 mg daily. - Monitor blood pressures, recommend standing up slowly due to risk for orthostatic hypotension. (5) FEN/PPX Plan: Fluids: PO only Elecs: Monitor and replace as needed Nutrition: Diet heart healthy, 2 gm sodium restriction, 1800 cc fluid restriction (NPO in case of catheterization today) DVT: On heparin ggt CODE STATUS: Full code Problem Qualifiers (1) CAD (coronary artery disease): Qualified Codes: I25.700 - Atherosclerosis of coronary artery bypass graft(s), unspecified, with unstable angina pectoris Sachin Christina MD R3 Apr 04, 2017 09:54
--- NOTE | 2017-04-04 09:55 | HHI.DCPOC ---
Discharge Care Plan Diagnosis: (1) Unstable angina (2) Essential hypertension (3) CAD (coronary artery disease) (4) Cardiomegaly Goals to Promote Your Health * To prevent worsening of your condition and complications * To maintain your health at the optimal level Directions to Meet Your Goals Take your medications as prescribed Follow your dietary instruction Follow activity as directed Keep your appointments as scheduled Take your immunizations and boosters as scheduled If your symptoms worsen call your PCP, if no PCP go to Urgent Care Center or Emergency Room Smoking is Dangerous to Your Health. Avoid second hand smoke Call the 24-hour hour crisis hotline for domestic abuse at Sachin Christina MD R3 Apr 04, 2017 09:54
[2017-04-04 10:07] LABS: BICARBONATE 27.6 MEQ/L (21.0-32.0); CALCIUM 8.5 MG/DL (8.5-10.1); CREATININE 1.24 MG/DL (0.60-1.30)
--- NOTE | 2017-04-04 10:54 | HHI.DS ---
Discharge Summary Admission Date Apr 02, 2017 at 13:26 Discharge Date: Apr 04, 2017 Admitting Diagnosis Unstable angina (1) Unstable angina Diagnosis: Principal Plan: History consistent with unstable angina EKG with non-specific ST depressions in V1, V3; isolated J-point elevation in V2 Troponin 0.04, 0.29, 0.16 BNP 682, cardiomegaly on chest x-ray Heparin drip initially, now discontinued - 2D Echo comp w/ Doppler pending due to symptoms consistent with CHF, increased BNP. cardiomegaly. If cannot be performed today in the hospital he may need to have it done as an outpatient. - Continue aspirin 81 mg daily, added Plavix 75 mg daily. - Nitroglycerin, morphine PRN for chest pain - Continue high dose atorvastatin 80 mg qHS - Metoprolol increased from 12.5 mg bid to 50 mg bid. However, due to low blood pressures and lightheadedness, will decrease to 25 mg bid and monitor. - Lisinopril 30 mg daily, will need outpatient BMP after discharge. - PT eval & tx; would benefit from cardiac rehab on discharge - Recommend heart healthy diet. He is not a smoker currently. ICD Codes: I20.0 - Unstable angina Status: Acute (2) CAD (coronary artery disease) Diagnosis: Principal Plan: Last heart cath July 2016 showed: 1. Total occlusion of L main and right coronary arteries 2. Widely patent Y-graft to the LAD and left circumflex, widely patent vein graft to the right coronary artery with a patent stent at its ostium 3. Suboptimal L ventriculogram; suggestion of diffuse hypokinesis with EF very roughly estimated at 40% 4. S/p intravascular ultrasound imaging of vein graft to RCA - See above plan ICD Codes: I25.10 - Atherosclerotic heart disease of [place] coronary artery without angina pectoris Status: Chronic (3) Cardiomegaly Diagnosis: Principal Plan: Cardiomegaly on x-ray and elevated BNP, and with exertional dyspnea. Likely underlying congestive heart failure with prior OK's. - Follow up ECHO, may need to get outpatient if not performed today - Continue beta erickson, ERVIN inhibitor. - May benefit from aldosterone antagonist depending on ejection fraction. - Recommend low sodium diet, moderate fluid restriction, daily weights at home. - Recommend heart healthy diet, cardiac rehabilitation. ICD Codes: I51.7 - Cardiomegaly Status: Chronic (4) Essential hypertension Diagnosis: Principal Plan: Initially hypertensive, now with hypotension with increases in BP medicine and addition of new BP medicine. - Metoprolol 50 mg bid, decrease to 25 mg bid for hypotension. - Added lisinopril 30 mg daily. - Monitor blood pressures, recommend standing up slowly due to risk for orthostatic hypotension. ICD Codes: I10 - Essential (primary) hypertension Status: Chronic (5) FEN/PPX Diagnosis: Secondary Plan: Fluids: PO only Elecs: Monitor and replace as needed Nutrition: Diet heart healthy, 2 gm sodium restriction, 1800 cc fluid restriction (NPO in case of catheterization today) DVT: On heparin ggt CODE STATUS: Full code [facility] Procedures Cardiac catheterization 04/03/17 Brief History 71-year-old male with past medical history of coronary artery disease status post multiple interventions including PCI and CABG, last PCI in July 2016 showing total occlusion of left main and right coronary arteries with full patency of existing grafts, no stent placement deemed necessary at that time. He presents with a three-day history of substernal chest pressure and exertional dyspnea. He also noted palpitations for the last couple days. The symptoms progressively worsened, prompting him to seek care in the ER today. He has not had any arm numbness. He has not had any upper respiratory symptoms including cough, wheezing. CBC/BMP: 04/04/17 0855 04/04/17 0855 Significant Findings Laboratory Tests Test 04/02/17 11:10 04/02/17 13:00 04/02/17 17:10 04/02/17 23:42 Red Blood Count 3.63 MIL/MM3 (4.50-5.90) 3.65 MIL/MM3 (4.50-5.90) Hemoglobin 10.9 GM/DL (13.0-17.0) 10.9 GM/DL (13.0-17.0) Hematocrit 32.4 % (39.0-51.0) 32.8 % (39.0-51.0) Neutrophils (%) (Auto) 77.3 % (16.0-70.0) Monocytes (%) (Auto) 8.1 % (0.0-8.0) Lymphocytes # (Auto) 0.8 TH/MM3 (1.0-4.8) Estimat Glomerular Filtration Rate 58 ML/MIN (>89) 62 ML/MIN (>89) B-Type Natriuretic Peptide 682 PG/ML (0-100) Activated Partial Thromboplast Time 41.1 SEC (24.3-30.1) 34.1 SEC (24.3-30.1) Troponin I 0.29 NG/ML (0.02-0.05) 0.16 NG/ML (0.02-0.05) Calcium Level 8.4 MG/DL (8.5-10.1) Test 04/03/17 06:38 04/04/17 08:55 Red Blood Count 3.41 MIL/MM3 (4.50-5.90) 3.61 MIL/MM3 (4.50-5.90) Hemoglobin 10.3 GM/DL (13.0-17.0) 10.7 GM/DL (13.0-17.0) Hematocrit 30.4 % (39.0-51.0) 32.4 % (39.0-51.0) Activated Partial Thromboplast Time 61.6 SEC (24.3-30.1) Estimat Glomerular Filtration Rate 57 ML/MIN (>89) Imaging Last 72 hours Impressions Chest X-Ray 04/02/17 1048 Signed Impressions: Service Date/Time: Sunday, April 02, 2017 11:07 - CONCLUSION: 1. Cardiomegaly. No acute pulmonary disease. Devonte Fletcher MD Upper Extremity Ultrasound 04/02/17 0000 Signed Impressions: Service Date/Time: Sunday, April 02, 2017 11:16 - CONCLUSION: Thrombosis basalic vein as above. Shamar Rudolph MD FACR PE at Discharge General: No distress, sitting up in chair Skin: No rashes or lesions, has incision site in suprapubic region associated with recent inguinal hernia repair, some ecchymosis associated with the surgery , no swelling or drainage from the site, does not appear infected HEENT: Normocephalic, no conjunctivitis, no nasal discharge CV: RRR, 3/6 systolic ejection murmur heard best over aortic valve, carotid bruits bilaterally Lungs: CTAB, no wheezing, rales, or rhonchi GI Soft, nontender, nondistended, normal bowel sounds Ext: No swelling or pain Neuro: Awake, alert, no distress, comfortable Hospital Course 71 year old male with extensive coronary artery disease, including coronary artery stents and CABG, peripheral artery disease, and severe carotid artery stenosis bilaterally presented to the hospital with exertional chest pain that starts in his left chest and radiates up to his jaw and down his left arm. EKG showed non-specific ST changes, with ST depressions in the V1 and V3 leads. Troponin trend was 0.04, 0.29, 0.16. He was treated with aspirin, nitro and morphine for chest pain. His metoprolol was continued at 12.5 mg bid. On day two of admission he was taken to the catheter lab. Catheter report showed no changes from his prior angiography. His metoprolol was increased to 50 mg bid, but because of some hypotension and lightheadedness, it was decreased back down to 25 mg bid. Lisinopril 30 mg was added to his regimen. Plavix was added to his aspirin. He is on high dose Atorvastatin at 80 mg daily. He is currently a non-smoker. Discussed lifestyle changes, including a heart healthy diet and a graded exercise program under the guidance of a physician. For cardiomegaly and elevated BNP up to the 600's, with recent increase in exertional dyspnea, an echo was ordered. He may have to acquire the ECHO as an outpatient if it cannot be performed before leaving the hospital. He is already on a beta erickson and ervin inhibitor. He may benefit from addition of a mineralocorticoid antagonist depending on his ejection fraction. We discussed reasonable sodium and fluid restriction and daily weights at home. 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 He will be discharged home with home health care and physical therapy. He would benefit from cardiac rehabilitation after discharge. Pt Condition on Discharge: Fair Discharge Disposition: Disch w/ Home Health Serv Discharge Instructions DIET: Follow Instructions for: Heart Healthy Diet Speech Therapy-Diet Recommends: Regular Fluid Restrictions: 2L per day Activities you can perform: Regular-No Restrictions (graded exercise program under supervision of physician) Follow up Referrals: Cardiology - 1 Week PCP Follow-up - 1 Week New Orders: BASIC METABOLIC PROF - 2-3 Days Sachin Christina MD R3 Apr 04, 2017 10:54
[2017-04-04] MEDS: MAGNESIUM OXIDE 400 MG TAB PO SCH ×2 (11:19→17:14)
[2017-04-04] MEDS ORDERED: LISI-515 PO (13:35)
[2017-04-04] MEDS ORDERED: PLAV75TA29 PO (13:35)
[2017-04-04] MEDS ORDERED: METO25TA3 PO (13:35)
--- NOTE | 2017-04-04 13:37 | HHI.FF ---
Face to Face Verification Diagnosis: (1) Unstable angina (2) PAD (peripheral artery disease) (3) Cardiomegaly (4) Essential hypertension (5) CAD (coronary artery disease) Physical Therapy Order: Evaluate and Treat, Improve ambulation, Strength and gait training Home Health Nursing Order: Medical education Signs/symptoms of disease process CHF education Medication education-adverse effect Nursing assessment with vital signs I have seen patient Marco Antonio Del Cid on 04/04/17. My clinical findings support the need for the requested home health care services because: Ltd mobility - disease progression Patient has SOB Deconditioned w/ increased weakness I certify that my clinical findings support that this patient is homebound because: Unsteady gait/balance Poor cardiac reserve Sachin Christina MD R3 Apr 04, 2017 13:37
--- NOTE | 2017-04-04 14:38 | PD.CARD.PN ---
Subjective Subjective Remarks no CV complaints No overnight events Objective Medications Current Medications Medications (Trade) Dose Ordered Sig/Sasha Route Start Time Stop Time Status Last Admin (NS Flush) 2 ml BID IV FLUSH 04/02/17 21:00 04/04/17 09:39 (NS Flush) 2 ml UNSCH PRN IV FLUSH 04/02/17 14:30 (Nitrostat Sl) 0.4 mg Q5M PRN SL 04/02/17 14:30 04/02/17 19:23 (Morphine Inj) 2 mg Q30M PRN IV PUSH 04/02/17 14:45 (Aspirin Chew) 81 mg DAILY CHEW 04/03/17 09:00 04/04/17 09:39 (Lipitor) 80 mg HS PO 04/02/17 21:00 04/03/17 20:20 (Ferrous Sulfate) 325 mg DAILY PO 04/03/17 09:00 04/04/17 09:39 (Mag-Ox) 400 mg BID@1100,1900 PO 04/02/17 19:00 04/04/17 11:19 (Pill Splitter) 1 ea UNSCH PRN OTHER 04/02/17 14:45 (Tylenol) 650 mg Q4H PRN PO 04/02/17 14:45 (Albuterol Neb) 2.5 mg Q4HR NEB PRN NEB 04/02/17 23:15 04/02/17 23:39 (Valium) 2 mg Q12H PRN PO 04/03/17 11:30 (Atropine Inj) 0.5 mg UNSCH PRN IV PUSH 04/03/17 15:00 (Zofran Inj) 4 mg Q4H PRN IV PUSH 04/03/17 15:00 (Imdur) 60 mg DAILY@0700 PO 04/04/17 07:00 (Plavix) 75 mg DAILY PO 04/03/17 15:00 04/04/17 09:38 (Prinivil) 20 mg DAILY PO 04/03/17 15:00 04/04/17 09:39 (Lopressor) 25 mg Q12HR PO 04/04/17 09:15 04/04/17 09:45 Vital Signs / I&O Vital Signs Date Time Temp Pulse Resp B/P (MAP) Pulse Ox O2 Delivery O2 Flow Rate FiO2 1/7/18 14:00 64 04/04/17 13:00 51 04/04/17 12:00 65 04/04/17 11:42 97.9 60 20 128/65 (86) 100 04/04/17 11:00 62 04/04/17 10:00 55 04/04/17 09:00 66 04/04/17 08:49 95 21 04/04/17 08:00 58 04/04/17 07:23 96 Room Air 04/04/17 07:23 97.7 66 20 107/67 (80) 96 04/04/17 07:00 53 04/04/17 04:00 98.3 61 18 106/66 (79) 97 04/04/17 04:00 61 04/04/17 04:00 Room Air 04/04/17 03:00 60 04/04/17 02:00 57 04/04/17 01:00 56 04/04/17 00:00 98.1 75 18 112/70 (84) 97 04/04/17 00:00 Room Air 04/04/17 00:00 58 04/03/17 23:00 55 04/03/17 22:00 58 04/03/17 21:00 60 04/03/17 20:00 68 04/03/17 20:00 98.0 68 18 90/56 (67) 97 04/03/17 20:00 Room Air 04/03/17 18:00 74 04/03/17 17:00 66 04/03/17 16:00 74 04/03/17 15:09 98.2 57 18 147/77 (100) 96 04/03/17 15:09 57 04/03/17 15:02 1.00 I/O 04/03/17 04/03/17 04/03/17 04/04/17 04/04/17 04/04/17 07:00 15:00 23:00 07:00 15:00 23:00 Intake Total 820 ml 1200 ml 750 ml Output Total 700 ml 650 ml 700 ml Balance 120 ml 550 ml 50 ml Intake Oral 720 ml 1200 ml 750 ml IV Total 100 ml Output Urine Total 700 ml 650 ml 700 ml # Bowel Movements 0 0 Physical Exam GENERAL: Well-nourished, well-developed patient. SKIN: Warm and dry. HEAD: Normocephalic. EYES: No scleral icterus. No injection or drainage. NECK: Supple, trachea midline. No JVD or lymphadenopathy. CARDIOVASCULAR: Regular rate and rhythm without murmurs, gallops, or rubs. RESPIRATORY: Breath sounds equal bilaterally. No accessory muscle use. GASTROINTESTINAL: Abdomen soft, non-tender, nondistended. EXTREMITIES: No cyanosis, or edema. NEUROLOGICAL: Awake, alert, and oriented x 3. Non-focal. Laboratory Laboratory Tests Test 04/04/17 08:55 White Blood Count 7.2 TH/MM3 Red Blood Count 3.61 MIL/MM3 Hemoglobin 10.7 GM/DL Hematocrit 32.4 % Mean Corpuscular Volume 89.8 FL Mean Corpuscular Hemoglobin 29.7 PG Mean Corpuscular Hemoglobin Concent 33.1 % Red Cell Distribution Width 15.9 % Platelet Count 247 TH/MM3 Mean Platelet Volume 8.0 FL Blood Urea Nitrogen 12 MG/DL Creatinine 1.24 MG/DL Random Glucose 93 MG/DL Calcium Level 8.5 MG/DL Sodium Level 140 MEQ/L Potassium Level 4.3 MEQ/L Chloride Level 107 MEQ/L Carbon Dioxide Level 27.6 MEQ/L Anion Gap 5 MEQ/L Estimat Glomerular Filtration Rate 57 ML/MIN Imaging Last Impressions Chest X-Ray 04/02/17 1048 Signed Impressions: Service Date/Time: Sunday, April 02, 2017 11:07 - CONCLUSION: 1. Cardiomegaly. No acute pulmonary disease. Devonte Fletcher MD Upper Extremity Ultrasound 04/02/17 0000 Signed Impressions: Service Date/Time: Sunday, April 02, 2017 11:16 - CONCLUSION: Thrombosis basalic vein as above. Shamar Rudolph MD FACR Assessment and Plan Problem List: (1) CAD (coronary artery disease) ICD Codes: I25.10 - Atherosclerotic heart disease of [place] coronary artery without angina pectoris Status: Chronic Plan: s/p LHC unchanged from previous. Patent SVG to LAD/LCx and RCA. Elevated LVEDP Uncontrolled HTN Recommendations: Cont aggressive medical management for CAD Cont ASA and Plavix and optimization of BP meds Stable from CV standpoint to be d/c home Follow up with Dr. Chao upon discharge (2) PAD (peripheral artery disease) ICD Codes: I73.9 - Peripheral vascular disease, unspecified Status: Acute Problem Qualifiers (1) CAD (coronary artery disease): Qualified Codes: I25.700 - Atherosclerosis of coronary artery bypass graft(s), unspecified, with unstable angina pectoris Tray Bishop MD Apr 04, 2017 14:38
[2017-04-04] MEDS: PANTOPRAZOLE SOD 40 MG DELAYED RELEASE TAB PO SCH (15:02)
--- NOTE | 2017-04-04 17:09 | ECHRPT ---
Indication: chest pain CONCLUSIONS The left ventricular systolic function is normal with an estimated ejection fraction in the range of 50% Normal left ventricular size. Wall thickness is measured at the upper limits of normal. No regional wall motion abnormalities are present. Moderate thickening of the mitral valve leaflets. [id number] mitral valve regurgitation. Moderate mitral annular calcification. Aortic valve sclerosis is present. There is trace tricuspid valve regurgitation. The estimated pulmonary arterial pressure is 45.8 mmHg. BP: 178 / 82 HR: 70 Rhythm: Sinus MEASUREMENTS (Male / Female) Normal Values Technical Quality:Fair 2D ECHO LV Diastolic Diameter PLAX 4.6 cm 4.2 - 5.9 / 3.9 - 5.3 cm LV Systolic Diameter PLAX 3.4 cm IVS Diastolic Thickness 1.2 cm 0.6 - 1.0 / 0.6 - 0.9 cm LVPW Diastolic Thickness 1.2 cm 0.6 - 1.0 / 0.6 - 0.9 cm LV Relative Wall Thickness 0.5 LVOT Diameter 1.8 cm LV Ejection Fraction MOD 4C 56.3 % LV Cardiac Index MOD 4C 2594.5 cm/minm LV Ejection Fraction 4C AL 58.5 % LV Cardiac Index 4C AL 2804.7 cm/minm M-MODE Aortic Root Diameter MM 3.0 cm AV Cusp Separation MM 1.3 cm DOPPLER AV Peak Velocity 146.0 cm/s AV Peak Gradient 8.5 mmHg LVOT Peak Velocity 87.9 cm/s LVOT Peak Gradient 3.1 mmHg AV Area Cont Eq pk 1.5 cm MV Area PHT 3.5 cm Mitral E Point Velocity 142.0 cm/s Mitral A Point Velocity 63.7 cm/s Mitral E to A Ratio 2.2 LV E' Lateral Velocity 6.9 cm/s Mitral E to LV E' Lateral Ratio 20.5 LV E' Septal Velocity 5.3 cm/s Mitral E to LV E' Septal Ratio 27.0 TR Peak Velocity 299.0 cm/s TR Peak Gradient 35.8 mmHg Right Atrial Pressure 10.0 mmHg Pulmonary Artery Systolic Pressu 45.8 mmHg Right Ventricular Systolic Press 45.8 mmHg PV Peak Velocity 151.0 cm/s PV Peak Gradient 9.1 mmHg FINDINGS LEFT VENTRICLE The left ventricular systolic function is normal with an estimated ejection fraction in the range of 55-60%. Normal left ventricular size. Wall thickness is measured at the upper limits of normal. No regional wall motion abnormalities are present. RIGHT VENTRICLE Normal right ventricular size and systolic function. LEFT ATRIUM The left atrial size is normal. RIGHT ATRIUM The right atrial size is normal. ATRIAL SEPTUM Normal atrial septal thickness without atrial level shunting by limited color doppler interrogation. AORTA The aortic root and proximal ascending aorta are normal in size on limited imaging. MITRAL VALVE Moderate thickening of the mitral valve leaflets. [id number] mitral valve regurgitation. Moderate mitral annular calcification. AORTIC VALVE Trileaflet aortic valve. Aortic valve sclerosis is present. TRICUSPID VALVE Structurally normal tricuspid valve. There is trace tricuspid valve regurgitation. The estimated pulmonary arterial pressure is 45.8 mmHg. PULMONARY VALVE No pulmonary valve regurgitation or stenosis. VESSELS The inferior vena cava is normal in size. PERICARDIUM No pericardial effusion. Tray Bishop MD (Electronically Signed) Final Date:04 April 2017 17:08
[2017-04-04] MEDS: ATORVASTATIN 80 MG TAB PO SCH (20:14)
[2017-04-04] MEDS: RESP: ALBUTEROL 2.5 MG/3 ML NEB (PRN) NEB (20:39)
[2017-04-05] VITALS (11 sets, daily range): BP systolic 95–151; BP diastolic 65–82; PULSE 56–71; RESP 18–20; TEMP 97.9–98.7; O2SAT 96–98
[2017-04-05] MEDS: ISOSORBIDE MONONITRATE 60 MG TAB PO SCH (06:27)
[2017-04-05] MEDS: LISINOPRIL 20 MG TAB PO SCH (08:34)
[2017-04-05] MEDS: PANTOPRAZOLE SOD 40 MG DELAYED RELEASE TAB PO SCH (08:34)
[2017-04-05] MEDS: METOPROLOL TARTRATE 25 MG TAB PO SCH (08:34)
[2017-04-05] MEDS: FERROUS SULFATE 325 MG (65 MG ELEMENTAL IRON) TAB PO SCH (08:34)
[2017-04-05] MEDS: ASPIRIN 81 MG CHEW TAB CHEW SCH (08:35)
[2017-04-05] MEDS: SODIUM CHLORIDE 0.9% FLUSH 10 ML FLUSH IV FLUSH SCH (08:35)
[2017-04-05] MEDS: CLOPIDOGREL 75 MG TAB PO SCH (08:35)
--- NOTE | 2017-04-05 10:34 | HHI.FPPN ---
Subjective Remarks No acute events overnight. VS unremarkable. BP improved however Imdur was held this AM due to lower BP overnight. This morning patient complains of lower abdominal pain that is most prominent on the lower left quadrant. Patient reports getting a hernia repair prior to admission. Patient also states that he develops chest pressure and shortness of breath on exertion but resolves with rest. Occurs with short distances. Patient without active chest pain or chest tightness. (Steffi Nascimento MD, R3) Objective Vitals Vital Signs Date Time Temp Pulse Resp B/P (MAP) Pulse Ox O2 Delivery O2 Flow Rate FiO2 04/05/17 09:31 71 04/05/17 09:31 Room Air 04/05/17 08:33 97.9 64 20 151/82 (105) 97 04/05/17 06:00 63 04/05/17 05:00 62 04/05/17 04:00 Room Air 04/05/17 04:00 98.0 60 18 95/65 (75) 96 04/05/17 04:00 60 04/05/17 03:00 62 04/05/17 02:00 60 04/05/17 01:00 63 04/05/17 00:00 60 04/05/17 00:00 98.3 60 18 122/65 (84) 97 04/05/17 00:00 Room Air 04/04/17 23:00 61 04/04/17 22:00 60 04/04/17 21:00 61 04/04/17 20:00 64 04/04/17 20:00 97.9 64 20 127/79 (95) 97 04/04/17 20:00 Room Air 04/04/17 18:00 67 04/04/17 17:21 98 21 04/04/17 17:00 61 04/04/17 16:00 67 04/04/17 15:40 97.8 64 20 101/65 (77) 98 04/04/17 15:00 65 04/04/17 14:00 64 04/04/17 13:00 51 04/04/17 12:00 65 04/04/17 11:42 97.9 60 20 128/65 (86) 100 04/04/17 11:00 62 I/O 04/04/17 04/04/17 04/04/17 04/05/17 04/05/17/8/18 07:00 15:00 23:00 07:00 15:00 23:00 Intake Total 750 ml 780 ml 240 ml Output Total 700 ml 900 ml 700 ml Balance 50 ml -120 ml -460 ml Intake Oral 750 ml 780 ml 240 ml Output Urine Total 700 ml 900 ml 700 ml # Bowel Movements 0 1 0 (Steffi Nascimento MD, R3) Result Diagram: 04/04/17 0855 04/04/17 0855 Objective Remarks GEN: Well-developed, well-nourished patient. No acute distress. Skin: No rashes or lesions, has incision site in suprapubic region associated with recent inguinal hernia repair, some ecchymosis associated with the surgery , no swelling or drainage from the site, does not appear infected CV: Regular rate and rhythm. 3/6 systolic ejection murmur heard best over aortic valve LUNGS: Clear to auscultation bilaterally. Normal respiratory effort. No wheezes , rales, rhonchi. GI: Soft, nondistended. Mild tenderness to palpation of left lower quadrant. No palpable masses. NEURO/PSYCH: Awake, alert. Appropriate insight and judgment. Normal speech Procedures Cardiac catheterization 04/03/17 (Steffi Nascimento MD, R3) A/P Assessment and Plan 71-year-old male with extensive coronary artery disease history presenting with symptoms of unstable angina. Discharge Planning Today pending walk tests and reevaluation by physical therapy. * Cleared by cardiology for discharge * Will need home health at discharge * Recommended following a heart healthy diet, a graded exercise program under supervision of physician, and taking all medications as prescribed. Recommended following closely with cardiology and primary care after discharge. * Recommended patient follow-up with hernia surgeon at discharge as well sdw Dr. Joseph (Steffi Nascimento MD, R3) Attending Attestation THIS CASE WAS DISCUSSED WITH THE RESIDENT PHYSICIAN DR Cameron DIAZ.PATIENT SEEN AND EXAMINED, I HAVE REVIEWED THE RECORD AND AGREE WITH THE ABOVE NOTE AND PLAN OF CARE WAS DISCUSSED. I HAVE AUTHORIZED THE ORDER SET Patient stable for discharge (Wilbert Joseph MD) Problem List: (1) Unstable angina ICD Codes: I20.0 - Unstable angina Status: Acute Plan: History consistent with unstable angina. EKG with non-specific ST depressions in V1, V3; isolated J-point elevation in V2. Troponin 0.04, 0.29, 0.16. BNP 682, cardiomegaly on chest x-ray -- 2D Echo comp w/ Doppler: EF 50%. Moderate thickening of mitral valve leaflets. Trace-mild mitral valve regurgitation. Moderate mitral annular calcification. Aortic valve sclerosis present. -Walk test today prior to d/x -re-eval by PT prior to d/c Cardiology consulted: appreciate recommendations -cardiac cath unchanged from previous. Patent SVG to LAD/LCx and RCA. -okay to d/c Medications: - aspirin 81 mg daily - Plavix 75 mg daily. - atorvastatin 80 mg qHS - Metoprolol 25 mg bid - will decrease imdur to 30mg (home dose) due to hypotension. - Lisinopril 20 mg daily, will need outpatient BMP after discharge. (2) CAD (coronary artery disease) ICD Codes: I25.10 - Atherosclerotic heart disease of [place] coronary artery without angina pectoris Status: Chronic Plan: Last heart cath July 2016 showed: 1. Total occlusion of L main and right coronary arteries 2. Widely patent Y-graft to the LAD and left circumflex, widely patent vein graft to the right coronary artery with a patent stent at its ostium 3. Suboptimal L ventriculogram; suggestion of diffuse hypokinesis with EF very roughly estimated at 40% 4. S/p intravascular ultrasound imaging of vein graft to RCA - See above plan (3) Cardiomegaly ICD Codes: I51.7 - Cardiomegaly Status: Chronic Plan: Cardiomegaly on x-ray and elevated BNP, and with exertional dyspnea. Likely underlying congestive heart failure with prior AK's. -see more detailed plan above (4) Essential hypertension ICD Codes: I10 - Essential (primary) hypertension Status: Chronic Plan: Initially hypertensive, now with hypotension with BP medication changes. - Metoprolol 25 mg bid (hypotension develops with 50mg BID) - see other medications above - Monitor blood pressures, recommend standing up slowly due to risk for orthostatic hypotension. (5) FEN/PPX Plan: Elecs: Monitor and replace as needed Nutrition: Diet heart healthy, 2 gm sodium restriction, 1800 cc fluid restriction DVT: previously on heparin for cardiac cath. None today as patient will be discharged. (Steffi Nascimento MD, R3) Problem Qualifiers (1) CAD (coronary artery disease): Qualified Codes: I25.700 - Atherosclerosis of coronary artery bypass graft(s), unspecified, with unstable angina pectoris Steffi Nascimento MD, R3 Apr 05, 2017 10:34 Wilbert Joseph MD Apr 06, 2017 09:51
[2017-04-05] MEDS: MAGNESIUM OXIDE 400 MG TAB PO SCH (11:48)
--- NOTE | 2017-04-05 15:35 | HHI.DS ---
Discharge Summary Admission Date Apr 02, 2017 at 13:26 Discharge Date: Apr 05, 2017 Admitting Diagnosis Unstable angina (1) Unstable angina Plan: History consistent with unstable angina. EKG with non-specific ST depressions in V1, V3; isolated J-point elevation in V2. Troponin 0.04, 0.29, 0.16. BNP 682, cardiomegaly on chest x-ray -- 2D Echo comp w/ Doppler: EF 50%. Moderate thickening of mitral valve leaflets. Trace-mild mitral valve regurgitation. Moderate mitral annular calcification. Aortic valve sclerosis present. -Walk test today prior to d/x -re-eval by PT prior to d/c Cardiology consulted: appreciate recommendations -cardiac cath unchanged from previous. Patent SVG to LAD/LCx and RCA. -okay to d/c Medications: - aspirin 81 mg daily - Plavix 75 mg daily. - atorvastatin 80 mg qHS - Metoprolol 25 mg bid - will decrease imdur to 30mg (home dose) due to hypotension. - Lisinopril 20 mg daily, will need outpatient BMP after discharge. ICD Codes: I20.0 - Unstable angina Status: Acute (2) CAD (coronary artery disease) Plan: Last heart cath July 2016 showed: 1. Total occlusion of L main and right coronary arteries 2. Widely patent Y-graft to the LAD and left circumflex, widely patent vein graft to the right coronary artery with a patent stent at its ostium 3. Suboptimal L ventriculogram; suggestion of diffuse hypokinesis with EF very roughly estimated at 40% 4. S/p intravascular ultrasound imaging of vein graft to RCA - See above plan ICD Codes: I25.10 - Atherosclerotic heart disease of [place] coronary artery without angina pectoris Status: Chronic (3) Cardiomegaly Plan: Cardiomegaly on x-ray and elevated BNP, and with exertional dyspnea. Likely underlying congestive heart failure with prior GA's. -see more detailed plan above ICD Codes: I51.7 - Cardiomegaly Status: Chronic (4) Essential hypertension Plan: Initially hypertensive, now with hypotension with BP medication changes. - Metoprolol 25 mg bid (hypotension develops with 50mg BID) - see other medications above - Monitor blood pressures, recommend standing up slowly due to risk for orthostatic hypotension. ICD Codes: I10 - Essential (primary) hypertension Status: Chronic (5) FEN/PPX Plan: Elecs: Monitor and replace as needed Nutrition: Diet heart healthy, 2 gm sodium restriction, 1800 cc fluid restriction DVT: previously on heparin for cardiac cath. None today as patient will be discharged. Procedures Cardiac catheterization 04/03/17 Brief History 71-year-old male with past medical history of coronary artery disease status post multiple interventions including PCI and CABG, last PCI in July 2016 showing total occlusion of left main and right coronary arteries with full patency of existing grafts, no stent placement deemed necessary at that time. He presents with a three-day history of substernal chest pressure and exertional dyspnea. He also noted palpitations for the last couple days. The symptoms progressively worsened, prompting him to seek care in the ER today. He has not had any arm numbness. He has not had any upper respiratory symptoms including cough, wheezing. CBC/BMP: 04/04/17 0855 04/04/17 0855 Significant Findings Laboratory Tests Test 04/02/17 17:10 04/02/17 23:42 04/03/17 06:38 04/04/17 08:55 Activated Partial Thromboplast Time 41.1 SEC (24.3-30.1) 34.1 SEC (24.3-30.1) 61.6 SEC (24.3-30.1) Troponin I 0.29 NG/ML (0.02-0.05) 0.16 NG/ML (0.02-0.05) Calcium Level 8.4 MG/DL (8.5-10.1) Estimat Glomerular Filtration Rate 62 ML/MIN (>89) 57 ML/MIN (>89) Red Blood Count 3.41 MIL/MM3 (4.50-5.90) 3.61 MIL/MM3 (4.50-5.90) Hemoglobin 10.3 GM/DL (13.0-17.0) 10.7 GM/DL (13.0-17.0) Hematocrit 30.4 % (39.0-51.0) 32.4 % (39.0-51.0) PE at Discharge GEN: Well-developed, well-nourished patient. No acute distress. Skin: No rashes or lesions, has incision site in suprapubic region associated with recent inguinal hernia repair, some ecchymosis associated with the surgery , no swelling or drainage from the site, does not appear infected CV: Regular rate and rhythm. 3/6 systolic ejection murmur heard best over aortic valve LUNGS: Clear to auscultation bilaterally. Normal respiratory effort. No wheezes , rales, rhonchi. GI: Soft, nondistended. Mild tenderness to palpation of left lower quadrant. No palpable masses. NEURO/PSYCH: Awake, alert. Appropriate insight and judgment. Normal speech Hospital Course 71 year old male with extensive coronary artery disease, including coronary artery stents and CABG, peripheral artery disease, and severe carotid artery stenosis bilaterally presented to the hospital with exertional chest pain that starts in his left chest and radiates up to his jaw and down his left arm. EKG showed non-specific ST changes, with ST depressions in the V1 and V3 leads. Troponin trend was 0.04, 0.29, 0.16. He was treated with aspirin, nitro and morphine for chest pain. His metoprolol was continued at 12.5 mg bid. On day two of admission he was taken to the catheter lab. Catheter report showed no changes from his prior angiography. His metoprolol was increased to 50 mg bid, but because of some hypotension and lightheadedness, it was decreased back down to 25 mg bid. Lisinopril 30 mg was added to his regimen. Plavix was added to his aspirin. He is on high dose Atorvastatin at 80 mg daily. Imdur was initially increased to 60mg daily but due to low BP, home Imdur of 30mg daily was resumed. He is currently a non-smoker. Discussed lifestyle changes, including a heart healthy diet and a graded exercise program under the guidance of a physician. For cardiomegaly and elevated BNP up to the 600's, with recent increase in exertional dyspnea, an echo was ordered. EF 50%. Moderate thickening of mitral valve leaflets. Trace-mild mitral valve regurgitation. Moderate mitral annular calcification. Aortic valve sclerosis present. We discussed reasonable sodium and fluid restriction and daily weights at home. He will need to follow up closely with his hospital fellow and with his primary care provider. He will be discharged home with home health care and physical therapy. Passed resp walk test prior to discharge. He would benefit from cardiac rehabilitation after discharge. Finally, pt was recommended to follow up hernia surgeon as we believe abdominal pain and bruising was likely related to recent surgery and anticoagulation. Pt was otherwise clinically stable. Pt Condition on Discharge: Fair Discharge Disposition: Disch w/ Home Health Serv Discharge Instructions DIET: Follow Instructions for: Heart Healthy Diet Speech Therapy-Diet Recommends: Regular Fluid Restrictions: 2L per day Activities you can perform: Regular-No Restrictions (graded exercise program under supervision of physician) Follow up Referrals: Cardiology - 1 Week PCP Follow-up - 1 Week Surgical - 1 Week New Orders: BASIC METABOLIC PROF - 2-3 Days New Medications: Clopidogrel (Plavix) 75 Mg Tab 75 MG PO DAILY, #30 TAB Lisinopril (Lisinopril) 20 Mg Tab 20 MG PO DAILY, #30 TAB Metoprolol Tartrate (Metoprolol Tartrate) 25 Mg Tab 25 MG PO Q12HR, #60 TAB Continued Medications: Albuterol 18 GM Inh (Ventolin Hfa 18 GM Inh) 90 Mcg/Act Aer 2 PUFF INH Q4-6H PRN for SHORTNESS OF BREATH, #1 INHALER 0 Refills Aspirin (Aspirin) 81 Mg Chew 81 MG CHEW DAILY, TAB 0 Refills Atorvastatin (Atorvastatin) 80 Mg Tab 80 MG PO HS for Cholesterol Management, #90 TAB 3 Refills Ferrous Sulfate (Ferrous Sulfate) 325 Mg (65 Mg Iron) Tablet 325 MG PO DAILY for Nutritional Supplement, #30 TAB 0 Refills Fish Oil-Cholecalciferol (Fish Oil + D3) 1,200-1,000 Mg-Unit Cap 1 CAP PO DAILY for Nutritional Supplement, #30 CAP 0 Refills Isosorbide Mononitrate ER (Isosorbide Mononitrate ER) 30 Mg [place] 30 MG PO DAILY for Prevent Chest Pain, #30 TAB 0 Refills Magnesium (Magnesium) 400 Mg Tab 400 MG PO BID for Nutritional Supplement, TAB 0 Refills Nitroglycerin SL (Nitroglycerin SL) 0.4 Mg Subl 0.4 MG SL DIRECTED PRN for CHEST PAIN, #100 TAB.SL 0 Refills ONE TABLET UNDER THE TONGUE NEEDED FOR CHEST PAIN, MAY REPEAT EVERY FIVE MINUTES FOR A TOTAL OF 3 DOSES OR CALL 911 IF NO RELIEF Discontinued Medications: Metoprolol Tartrate (Metoprolol Tartrate) 25 Mg Tab 12.5 MG PO BID, #60 TAB 0 Refills Steffi Nascimento MD, R3 Apr 05, 2017 15:35
[2017-04-06] MEDS ORDERED: ISOSORBIDE MONONITRATE 30 MG TAB PO SCH (07:00)
[2017-04-08] MEDS ORDERED: ASPI-516 CHEW (12:33)
[2017-04-08] MEDS ORDERED: PLAV75TA29 PO (12:33)
[2017-04-08] MEDS ORDERED: LISI-515 PO (12:33)
[2017-04-08] MEDS ORDERED: ATOR80TA45 PO (12:33)
[2017-04-08] MEDS ORDERED: METO25TA3 PO (12:33)
== END 2017-04-05 14:57 | disposition home health service (06) | DRG 287 ==
LOC: NEPC 10:20 → NEDA 13:26 → HCIS 15:37
PROVIDERS: ADMIT Family Medicine; ATTEND Family Medicine
PROC: 4A023N7 Measurement of Cardiac Sampling and Pressure, Left Heart, Percutaneous Approach (ICD-10-PCS; principal; 2017-04-03)
PROC: B2131ZZ Fluoroscopy of Multiple Coronary Artery Bypass Grafts using Low Osmolar Contrast (ICD-10-PCS; 2017-04-03)
PROC: B2151ZZ Fluoroscopy of Left Heart using Low Osmolar Contrast (ICD-10-PCS; 2017-04-03)
DX: I25.110 Atherosclerotic heart disease of native coronary artery with unstable angina pectoris (principal); I11.0 Hypertensive heart disease with heart failure; I95.9 Hypotension, unspecified; I50.9 Heart failure, unspecified; I25.82 Chronic total occlusion of coronary artery; I73.9 Peripheral vascular disease, unspecified; J43.9 Emphysema, unspecified; I35.8 Other nonrheumatic aortic valve disorders; I34.0 Nonrheumatic mitral (valve) insufficiency; K21.9 Gastro-esophageal reflux disease without esophagitis; H91.8X9 Other specified hearing loss, unspecified ear; Z87.891 Personal history of nicotine dependence; Z88.5 Allergy status to narcotic agent; Z95.1 Presence of aortocoronary bypass graft; Z95.5 Presence of coronary angioplasty implant and graft
CPT/HCPCS: 71045; 80048; 82550; 83735; 83880; 84484; 85025; 85027; 85610; 85730; 93005; 93306; 93459; 93971; 94618; 94640; 94664; 99152; 99153; C1760; C1769; C1893; G0269; J1644; J2250; J3010; J7613; Q9967